=== PATIENT | male | born 1935 | race Caucasian/White ===

== ENCOUNTER 2016-09-29 09:30 | Emergency (ER) | payer MEDICARE, BC | END 2016-09-29 09:37 | disposition home or self-care (01) | LOC: ER 09:30 | DX: Z48.02 Encounter for removal of sutures (principal) ==

== ENCOUNTER 2016-12-27 09:03 | Emergency (ER) | payer MEDICARE, BC ==
--- OUTSIDE RECORDS SUMMARY | 2016-12-27 09:10 | XMS REPORT | Continuity of Care Document ---
:1935 Author Organization [facility] ([facility]) Address [address] [place] [address] Phone [phone] Care Team Providers Name Role Phone Preeti Arzola Primary Care Provider [phone] Source Comments This disclosure is being made pursuant to the Care Everywhere program, applicable federal and state laws, and may not contain all informaitonavailable regarding this patient.[facility] ([facility]) Active Allergies and Adverse Reactions No Known Allergies Current Medications Prescription Sig. Disp. Refills Start Date End Date Status UREA/HYDROPHILIC apply topically as 454 g 11 01/16/2014 Active OINTMENT (UREA 10% IN needed. Indications: HYDROPHILIC) topical HYPERKERATOSIS ointment fluoroURACIL 5 % Apply topically 2 times 40 g 2 05/20/2016 Active topical cream daily. Apply to lesions as directed. loratadine 10 mg Take 10 mg by mouth 5 12/08/2016 Active tablet daily. Active Problems Problem Noted Date Actinic keratoses 07/25/2013 History of nonmelanoma skin cancer 02/08/2012 Spinal stenosis, other than cervical 1999 Most Recent Encounters Date Type Specialty Providers Description 12/21/2016 Telephone Dermatology Keaton Lazo, Chief Comp: Post-op Salma Perez MD Follow-up Call 12/20/2016 Office Visit Dermatology Keaton Lazo, Dx: Squamous cell aSlma Perez MD carcinoma of cheek (Primary Dx) 12/14/2016 Telephone Dermatology Gage Powers Chief Comp: Preoperative Screening 12/02/2016 Office Visit Dermatology Keaton Lazo Dx: Neoplasm of uncertain Salma Perez MD behavior of skin (Primary Dx) Immunizations Name Dates Previously Given Next Due Pneumococcal, unspecified 04/06/2012 Social History Tobacco Use Types Packs/Day Years Used Date Former Smoker Cigarettes 1 Quit: 03/22/2014 Smokeless Tobacco: Never Used Tobacco Cessation:Counseling Given: Yes Comments: Last Filed Vital Signs Vital Sign Reading Time Taken Blood Pressure 152/71 12/20/2016 9:03 AM CDT Pulse 71 12/20/2016 9:03 AM CDT Temperature 36.7 C (98.1 F) 12/20/2016 9:03 AM CDT Respiratory Rate - - Height 1.829 m (6') 02/15/1999 5:45 PM CDT Weight 66.679 kg (147 lb) 02/15/1999 5:45 PM CDT Body Mass Index 19.93 02/15/1999 5:45 PM CDT Oxygen Saturation 97% 12/20/2016 9:03 AM CDT Plan of Care Date Type Specialty Providers Description 03/10/2017 Appointment Dermatology Keaton Lazo, Chief Comp: Patient Salma Perez MD Reported Reason For Visit [address] [place] [address] [phone] (Fax) Health Maintenance Due Date Last Done Comments Hepatitis B Vaccine (1 of 3 - Primary Series) 1935 Tdap Vaccine 1948 Lipid Disorder Screening 1955 Td Vaccine 1955 Colonoscopy 1987 Zoster Vaccine 1997 Pneumococcal Vaccine (1 of 2 - PCV13) 2002 Influenza Vaccine: Seasonal (Season Ended) 2017 Procedures from Last 3 Months Procedure Name Priority Date/Time Associated Diagnosis Comments MOHS SURGERY Routine 12/20/2016 1:53 PM Squamous cell Results for this CDT carcinoma of cheek procedure are in the results section. MOHS SURGERY Routine 12/20/2016 1:53 PM Squamous cell Results for this CDT carcinoma of cheek procedure are in the results section. BX XTRNL EAR Routine 12/10/2016 3:03 PM Neoplasm of Results for this CDT uncertain behavior procedure are in of skin the results section. DSTRJ ALL PRMLG Routine 12/10/2016 3:03 PM Actinic keratosis Results for this 2-14 EA CDT procedure are in the results section. DSTRJ ALL PRMLG 1ST Routine 12/10/2016 3:03 PM Actinic keratosis Results for this LES CDT procedure are in the results section. Results from Last 3 Months MOHS SURGERY (12/20/2016 1:53 PM) Tasneem Ricks MD 12/20/20161:53 PM Mohs Micrographic Surgery Operation Record Surgery/Procedure Date: 12/20/2016 Surgical Service: Dermatologic Surgery Attending Staff Surgeon: Salma Lazo MD Fellow: Tasneem Hammond MD Mohs micrographic surgery was indicated. The nature and purpose of the procedure, associated risks, possible consequences and complications, and alternative forms of treatment were explained to the patient.Written informed consent and a photo permit were obtained.The patient was positioned and the area was infiltrated with local anesthetic, prepped, and draped in the usual manner. Anesthesia: 1% lidocaine with 1:100,000 epinephrine 0.25% bupivicaine with 1:200,000 epinephrine Preparation: Chlorhexidine Lesion I Pre-operative Diagnosis: squamous cell carcinoma Location: Left preauricular cheek Pre-operative Size: 0.9 x 0.8 cm Post-operative Diagnosis: Same Indications: ill - defined clinical margins, location where tissue conservation is critical Operation/Procedure: Mohs micrographically controlled excision with with a complex linear closure The clinically apparent tumor was debulked with a curette, scalpel and scissors. Stage I: A 2 mm rim of normal appearing skin was marked circumferentially around the defect.The area thus outlined was excised deep to sucbutis.Hemostasis was achieved with bipolar electrocoagulation.The specimen was oriented, subdivided into 2 sections, chromacoded, and submitted for horizontal frozen sections.The patient tolerated the procedure well and no complications were noted.Upon review of the horizontal frozen sections of Stage I, residual tumor was identified along the periphery of the superior pole of the specimen. Stage II: The residual tumor was debulked with a scalpel.A 2 mm rim of normal appearing skin was marked circumferentially around the periphery of the defect.The area thus outlined was excised deep to subcutis.Hemostasis was achieved with bipolar electrocoagulation.The specimen was oriented, subdivided into 1 sections, chromacoded, and submitted for horizontal frozen sections.The patient tolerated the procedure well and no complications were noted.Upon review of the horizontal frozen sections of stage II, residual tumor was not identified. The final defect size was 1.7 x 1.8 cm and the total number of microscopic sections was 3.The surgical defect was repaired with a complex linear closure A fusiform shape was drawn around the defect with a surgical marker and the area was infiltrated with 1% lidocaine with 1:100,000 epinephrine.The patient was prepped and draped in the usual manner. The margins were incised as drawn to the level of the subcutis with a surgical blade.The tissue was removed with sharp scissor dissection.The lateral margins of the resulting defect were undermined at the level of the subcutis with blunt and sharp scissor dissection so the wound edges could be apposed without significant tension. Hemostasis was maintained using spot electrocoagulation. The wound was closed with deep buried sutures of 4-0 Polysorb. The wound edges were approximated with superficial running and/or interrupted sutures of 6-0 Surgipro. Redundant tissue repair was performed and subsequently the wounds closed in similar fashion. The resulting closed linear wound measured 6 cm and ran in tori breana configuration . The wound was cleansed with sterile saline and dressed with a non-adherent pressure bandage. Wound care instructions were given verbally and in writing. Lesion II Pre-operative Diagnosis: squamous cell carcinoma, well differentiated Location: right jawline Pre-operative Size: 0.8 x 0.6 cm Post-operative Diagnosis: Same Indications: ill - defined clinical margins, location where tissue conservation is critical Operation/Procedure: Mohs micrographically controlled excision with with a complex linear closure The clinically apparent tumor was debulked with a curette, scalpel and scissors. Stage I: A 2 mm rim of normal appearing skin was marked circumferentially around the defect.The area thus outlined was excised deep to subcutis.Hemostasis was achieved with bipolar electrocoagulation.The specimen was oriented, subdivided into 2 sections, chromacoded, and submitted for horizontal frozen sections.The patient tolerated the procedure well and no complications were noted.Upon review of the horizontal frozen sections of Stage I, residual tumor was not identified. The final defect size was 1.2 x 1 cm and the total number of microscopic sections was 2.The surgical defect was repaired with a complex linear closure A fusiform shape was drawn around the defect with a surgical marker and the area was infiltrated with 1% lidocaine with 1:100,000 epinephrine.The patient was prepped and draped in the usual manner. The margins were incised as drawn to the level of the subcutis with a surgical blade.The tissue was removed with sharp scissor dissection.The lateral margins of the resulting defect were undermined at the level of the subcutis with blunt and sharp scissor dissection so the wound edges could be apposed without significant tension. Hemostasis was maintained using spot electrocoagulation. The wound was closed with deep buried sutures of 4-0 Polysorb. The wound edges were approximated with superficial running and/or interrupted sutures of 6-0 Surgipro. Redundant tissue repair was performed and subsequently the wounds closed in similar fashion. The resulting closed linear wound measured 3 cm and ran vertically. The wound was cleansed with sterile saline and dressed with a non-adherent pressure bandage. Wound care instructions were given verbally and in writing. Patient was recommended acetaminophen 650mg po PRN pain.The patient was discharged from the Dermatology Clinic in good condition. Salma Lazo MD was physically present for the entire procedure. Staff Involved: Staff and Resident/Fellow Tasneem Hammond MD Procedure Summary: Mohs micrographically controlled excision Area affected: head/neck Location details: left cheek Number of Stages: 2 Number of Tissue Blocks in Stage 1: 2 Number of Tissue Blocks in Stage 2: 1 Repair(s) performed: linear closure Linear Closure Repair Size: 6 cm Linear Closure Repair Complexity: complex Mohs micrographically controlled excision Area affected: head/neck Location details: right cheek Number of Stages: 1 Number of Tissue Blocks in Stage 1: 2 Repair(s) performed: linear closure Linear Closure Repair Size: 3.5 cm Linear Closure Repair Complexity: complex MOHS SURGERY (12/20/2016 1:53 PM) Tasneem Ricks MD 12/20/20161:53 PM Mohs Micrographic Surgery Operation Record Surgery/Procedure Date: 12/20/2016 Surgical Service: Dermatologic Surgery Attending Staff Surgeon: Salma Lazo MD Fellow: Tasneem Hammond MD Mohs micrographic surgery was indicated. The nature and purpose of the procedure, associated risks, possible consequences and complications, and alternative forms of treatment were explained to the patient.Written informed consent and a photo permit were obtained.The patient was positioned and the area was infiltrated with local anesthetic, prepped, and draped in the usual manner. Anesthesia: 1% lidocaine with 1:100,000 epinephrine 0.25% bupivicaine with 1:200,000 epinephrine Preparation: Chlorhexidine Lesion I Pre-operative Diagnosis: squamous cell carcinoma Location: Left preauricular cheek Pre-operative Size: 0.9 x 0.8 cm Post-operative Diagnosis: Same Indications: ill - defined clinical margins, location where tissue conservation is critical Operation/Procedure: Mohs micrographically controlled excision with with a complex linear closure The clinically apparent tumor was debulked with a curette, scalpel and scissors. Stage I: A 2 mm rim of normal appearing skin was marked circumferentially around the defect.The area thus outlined was excised deep to sucbutis.Hemostasis was achieved with bipolar electrocoagulation.The specimen was oriented, subdivided into 2 sections, chromacoded, and submitted for horizontal frozen sections.The patient tolerated the procedure well and no complications were noted.Upon review of the horizontal frozen sections of Stage I, residual tumor was identified along the periphery of the superior pole of the specimen. Stage II: The residual tumor was debulked with a scalpel.A 2 mm rim of normal appearing skin was marked circumferentially around the periphery of the defect.The area thus outlined was excised deep to subcutis.Hemostasis was achieved with bipolar electrocoagulation.The specimen was oriented, subdivided into 1 sections, chromacoded, and submitted for horizontal frozen sections.The patient tolerated the procedure well and no complications were noted.Upon review of the horizontal frozen sections of stage II, residual tumor was not identified. The final defect size was 1.7 x 1.8 cm and the total number of microscopic sections was 3.The surgical defect was repaired with a complex linear closure A fusiform shape was drawn around the defect with a surgical marker and the area was infiltrated with 1% lidocaine with 1:100,000 epinephrine.The patient was prepped and draped in the usual manner. The margins were incised as drawn to the level of the subcutis with a surgical blade.The tissue was removed with sharp scissor dissection.The lateral margins of the resulting defect were undermined at the level of the subcutis with blunt and sharp scissor dissection so the wound edges could be apposed without significant tension. Hemostasis was maintained using spot electrocoagulation. The wound was closed with deep buried sutures of 4-0 Polysorb. The wound edges were approximated with superficial running and/or interrupted sutures of 6-0 Surgipro. Redundant tissue repair was performed and subsequently the wounds closed in similar fashion. The resulting closed linear wound measured 6 cm and ran in tori breana configuration . The wound was cleansed with sterile saline and dressed with a non-adherent pressure bandage. Wound care instructions were given verbally and in writing. Lesion II Pre-operative Diagnosis: squamous cell carcinoma, well differentiated Location: right jawline Pre-operative Size: 0.8 x 0.6 cm Post-operative Diagnosis: Same Indications: ill - defined clinical margins, location where tissue conservation is critical Operation/Procedure: Mohs micrographically controlled excision with with a complex linear closure The clinically apparent tumor was debulked with a curette, scalpel and scissors. Stage I: A 2 mm rim of normal appearing skin was marked circumferentially around the defect.The area thus outlined was excised deep to subcutis.Hemostasis was achieved with bipolar electrocoagulation.The specimen was oriented, subdivided into 2 sections, chromacoded, and submitted for horizontal frozen sections.The patient tolerated the procedure well and no complications were noted.Upon review of the horizontal frozen sections of Stage I, residual tumor was not identified. The final defect size was 1.2 x 1 cm and the total number of microscopic sections was 2.The surgical defect was repaired with a complex linear closure A fusiform shape was drawn around the defect with a surgical marker and the area was infiltrated with 1% lidocaine with 1:100,000 epinephrine.The patient was prepped and draped in the usual manner. The margins were incised as drawn to the level of the subcutis with a surgical blade.The tissue was removed with sharp scissor dissection.The lateral margins of the resulting defect were undermined at the level of the subcutis with blunt and sharp scissor dissection so the wound edges could be apposed without significant tension. Hemostasis was maintained using spot electrocoagulation. The wound was closed with deep buried sutures of 4-0 Polysorb. The wound edges were approximated with superficial running and/or interrupted sutures of 6-0 Surgipro. Redundant tissue repair was performed and subsequently the wounds closed in similar fashion. The resulting closed linear wound measured 3 cm and ran vertically. The wound was cleansed with sterile saline and dressed with a non-adherent pressure bandage. Wound care instructions were given verbally and in writing. Patient was recommended acetaminophen 650mg po PRN pain.The patient was discharged from the Dermatology Clinic in good condition. Salma Lazo MD was physically present for the entire procedure. Staff Involved: Staff and Resident/Fellow Tasneem Hammond MD Procedure Summary: Mohs micrographically controlled excision Area affected: head/neck Location details: left cheek Number of Stages: 2 Number of Tissue Blocks in Stage 1: 2 Number of Tissue Blocks in Stage 2: 1 Repair(s) performed: linear closure Linear Closure Repair Size: 6 cm Linear Closure Repair Complexity: complex Mohs micrographically controlled excision Area affected: head/neck Location details: right cheek Number of Stages: 1 Number of Tissue Blocks in Stage 1: 2 Repair(s) performed: linear closure Linear Closure Repair Size: 3.5 cm Linear Closure Repair Complexity: complex BIOPSY OF SKIN (12/10/2016 3:03 PM) Salma Chairez MD 12/10/20163:03 PM Dermatology Clinic Note Encounter Date: 12/02/2016 Subjective: History of Present Illness: This 81 y.o. male follows up for history of squamous cell carcinoma and actinic keratoses. Today, the patient notes new, painful lesions on the bilateral ears that have been present for months. He has not treated them. He is currently using Efudex on the forehead and forearms. No other skin rashes or lesions that are bleeding, pruritic, or changing in size/color are reported. The patient has no other skin concerns today. Past Medical History: 1. 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 -Squamous cell carcinoma, right superior neck and left neck, status post shave biopsy with clear margins. -Squamous cell carcinoma, left frontal scalp, status post Mohs excision 11/2005. -Squamous cell carcinoma, left jaw, status post Mohs excision 01/2005. -Squamous cell carcinoma, keratoacanthoma type, mid back, status post C&F 10/2006. -Squamous cell carcinoma in situ, right zygoma, status post C&F 10/2006. -Squamous cell carcinoma, left denominational, status post Mohs 03/05/2007. -Squamous cell carcinoma at least in situ, left preauricular cheek, status post C&F 03/05/2007. -Squamous cell carcinoma, right lateral hand, status post C&F 06/13/2007. -Squamous cell carcinoma, right forearm, status post excision 07/16/2007. -Squamous cell carcinoma, left forearm, status post excision 07/16/2007. -Squamous cell carcinoma, right lateral neck, status post C&F 07/16/2007. -Squamous cell carcinoma in situ, at least, right forehead, status post C&F 08/20/2008. -Squamous cell carcinoma, forehead, status post C&F 08/20/2008. -Squamous cell carcinoma, right denominational, status post C&F 12/03/2008, status post Mohs 12/30/2008. -Squamous cell carcinoma, left forearm, status post C&F 12/30/2008. -Squamous cell carcinoma, left dorsal hand, status post C&F 04/08/2009. -Squamous cell carcinoma, right dorsal forearm, status post C&F 04/08/2009. -Squamous cell carcinoma, left upper arm and right dorsal wrist, status post C&F 05/06/2009. -Squamous cell carcinoma, right dorsal forearm, status post excision 06/08/2009. -Squamous cell carcinoma, left forearm, left wrist, and right wrist, status post C&F 04/19/2010. -Squamous cell carcinoma in situ and squamous cell carcinoma, left forearm, status-post C&F 07/22/2010. -Squamous cell carcinoma (x2), right dorsal hand, status post C&F 11/04/2010. -Squamous cell carcinoma (x2), right neck, status post excision 12/06/2010. -Squamous cell carcinoma, left postauricular neck, status post C&F 06/02/2011. 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 -SCC left upper back, s/p shave with uninvolved margins 06/07/2012 -SCCIS, left lower back, s/p C and F 06/07/2012 -SCC, mod-diff, right postauricular, s/p excision 10/15/13 -SCC, well-diff, right preauricular, s/p C&F, 10/15/13 - SCCIS, right lateral neck, s/p shave removal (uninvolved margins (01/16/2014) - SCC, left forehead, s/p Mohs 06/2014 - SCC, left scaphoid fossa, s/p Mohs 11/10/14 - SCC, right cheek, status post Mohs 11/10/14 -Squamous cell carcinoma, invasive, well-differentiated, arising in background actinic keratosis. left jaw line, 08/2015 - SCC, left lateral neck, s/p excision on 09/19/16: -Squamous cell carcinoma, distal right lower arm, s/p curettage and electrofulguration on 09/19/16 - Squamous cell carcinoma, dorsal left lower arm, s/p curettage and electrofulguration on 09/19/16 2. Actinic keratoses. -HAK, biopsied 06/07/2012 -Efudex X 12 days to forehead 09/2012 - Efudex x2 weeks to left upper back x2 weeks (6 weeks recommended), 10/04/12 - Efudex to arms, 2 weeks QD, completed 12/24/12 - Efudex to forehead and arms x 10 days, 06/2013 - Efudex to forearms and dorsal hands x 2 weeks, 04/2014 - Efudex to dorsal forearms, hands, forehead x 4 weeks 09/2014 - Efudex to lower lip 12/24 - Efudex to forehead November 2015 - Efudex to forehead, scalp, right ear, arms 08/2016 Social History: Mr. Stack patient is . 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 Lives in [place]. They have [address]. Reports appropriate sun protective practices. Family History: Denies family history of melanoma. Nonmelanoma skin cancers in brother & sister. Medications: Outpatient Medication Currently Taking Medication Sig Refill fluoroURACIL 5 % topical cream Apply topically 2 times daily. Apply to lesions as directed. 2 UREA/HYDROPHILIC OINTMENT (UREA 10% IN HYDROPHILIC) topical ointment applytopically as needed. Indications: HYPERKERATOSIS 11 Allergies: No Known Allergies Review of Systems: Skin Establ Pt: The patient denies any new rash, pruritus, or lesions that are symptomatic, changing or bleeding, except as per HPI. Objective: Physical exam: This is a well developed, well-nourished male in no acute distress, with a pleasant affect.Waist-up skin, which includes the head/face, neck, both arms, chest, back, abdomen, digits and/or nails, was examined. -There are multiple scattered erythematous macules with overlying adherent scale on forehead, temples, forearms, dorsal hands, left retroauricular area (x1), cheeks (x3), right superior helix (x1) - 4 mm crusted papule on the left lateral helix (A) - 3 mm crusted papule on the right antihelix (B) - 9 mm eroded plaque on the left preauricular cheek (C) - 4 mm erythematous papule on the right jaw line (D) - >5 cm erythematous patch on the left shoulder -There are no other skin lesions of concern in the areas examined. Impression: 1. Neoplasms of uncertain behavior x 4 A. Left lateral helix - squamous cell carcinoma vs CNH B. Right antihelix - squamous cell carcinoma vs CNH C. Left preauricular cheek - rule out squamous cell carcinoma D. Right jaw line - rule out squamous cell carcinoma 2. Erythematous patch on left shoulder at site of previous squamous cell carcinoma in situ (04/2008) - lesion likely recurrent squamous cell carcinoma in situ 3. History of multiple squamous cell carcinomas with no clinical evidence of recurrence today except as noted above 4. Multiple actinic keratoses in sun-exposed areas Plan: 1. Clinical findings were discussed with the patient. 2. Shave biopsies x 4 performed as documented below 3. Cryotherapy to more hyperkeratotic lesions on left retroauricular area (x1), cheeks (x3), right superior helix (x1) 4. Continue Efudex twice daily x 3 weeks, then take 2 week break, then repeat to forehead, temples, forearms, dorsal hands. Treat left shoulder lesion as well. 5. Recommend periodic self skin exams and report of any new or changing lesions. 6. Recommend broad spectrum sunscreens SPF #30 or greater, protective clothing, and avoidance of tanning beds. Follow up 3 months Procedure Performed: AK destruction Number of lesions: 5 Additional Procedure Detail: The above described lesions were treated with liquid nitrogen cryotherapy to achieve a freeze border of 1-2 mm. Post-cryotherapy wound care instructions were provided. Biopsy Area affected: head/neck Location details: right ear, left ear, right cheek and left cheek Number of lesions: 4 Additional Procedure Detail: After the risks and benefits were discussed with the patient, all questions were addressed and informed consent was signed.1% lidocaine with 1:100,000 epinephrine was injected to obtain adequate anesthesia of the lesion(s) as described above.Shave biopsies were performed.Hemostasis was achieved with aluminum chloride. White petroleum jelly/Vaseline and a bandage were applied to the wounds. Soheila Jimeneztaffed the patient and was physically present for the kevin portions of the above major procedure(s). Teaching Statement I have interviewed and examined the patient and confirm the pertinent findings.I have discussed the case with the resident/fellow and agree with the findings and plan as documented. Procedure Attestation I was physically present for the kevin portion(s) of the procedure and was immediately available for the non-kevin portions.Kevin portions defined as the site selection and performance of shave/punch and destruction of an initial lesion. 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 Discussed that repair options that are often uncertain until the lesion has been excised, discussed that the surgical defect may be larger than the clinically evident lesion.Reviewed the Mohs surgery process and advised to reserve the entire day for the procedure.Advised to continue all medications. Preoperative antibiotics are not indicated.Electronic Mohs completed and submitted for scheduling. For the hypertrophic actinic keratosis on the right antihelix (lesion B below), start Efudex twice daily x 3 weeks. Pathology: A. Skin, left lateral helix, shave biopsy: Chondrodermatitis nodularis helicis. B. Skin, right antihelix, shave biopsy: Hypertrophic actinic keratosis. C. Skin, left preauricular cheek, shave biopsy: At least squamous cell carcinoma in situ. D. Skin, right jawline, shave biopsy: Squamous cell carcinoma, well differentiated. Javon Lopez MD DESTRUCTION PREMALIGNANT LESIONS (12/10/2016 3:03 PM) Narrative Salma Heaton MD 12/10/20163:03 PM Dermatology Clinic Note Encounter Date: 12/02/2016 Subjective: History of Present Illness: This 81 y.o. male follows up for history of squamous cell carcinoma and actinic keratoses. Today, the patient notes new, painful lesions on the bilateral ears that have been present for months. He has not treated them. He is currently using Efudex on the forehead and forearms. No other skin rashes or lesions that are bleeding, pruritic, or changing in size/color are reported. The patient has no other skin concerns today. Past Medical History: 1. 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 -Squamous cell carcinoma, right superior neck and left neck, status post shave biopsy with clear margins. -Squamous cell carcinoma, left frontal scalp, status post Mohs excision 11/2005. -Squamous cell carcinoma, left jaw, status post Mohs excision 01/2005. -Squamous cell carcinoma, keratoacanthoma type, mid back, status post C&F 10/2006. -Squamous cell carcinoma in situ, right zygoma, status post C&F 10/2006. -Squamous cell carcinoma, left denominational, status post Mohs 03/05/2007. -Squamous cell carcinoma at least in situ, left preauricular cheek, status post C&F 03/05/2007. -Squamous cell carcinoma, right lateral hand, status post C&F 06/13/2007. -Squamous cell carcinoma, right forearm, status post excision 07/16/2007. -Squamous cell carcinoma, left forearm, status post excision 07/16/2007. -Squamous cell carcinoma, right lateral neck, status post C&F 07/16/2007. -Squamous cell carcinoma in situ, at least, right forehead, status post C&F 08/20/2008. -Squamous cell carcinoma, forehead, status post C&F 08/20/2008. -Squamous cell carcinoma, right denominational, status post C&F 12/03/2008, status post Mohs 12/30/2008. -Squamous cell carcinoma, left forearm, status post C&F 12/30/2008. -Squamous cell carcinoma, left dorsal hand, status post C&F 04/08/2009. -Squamous cell carcinoma, right dorsal forearm, status post C&F 04/08/2009. -Squamous cell carcinoma, left upper arm and right dorsal wrist, status post C&F 05/06/2009. -Squamous cell carcinoma, right dorsal forearm, status post excision 06/08/2009. -Squamous cell carcinoma, left forearm, left wrist, and right wrist, status post C&F 04/19/2010. -Squamous cell carcinoma in situ and squamous cell carcinoma, left forearm, status-post C&F 07/22/2010. -Squamous cell carcinoma (x2), right dorsal hand, status post C&F 11/04/2010. -Squamous cell carcinoma (x2), right neck, status post excision 12/06/2010. -Squamous cell carcinoma, left postauricular neck, status post C&F 06/02/2011. 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 -SCC left upper back, s/p shave with uninvolved margins 06/07/2012 -SCCIS, left lower back, s/p C and F 06/07/2012 -SCC, mod-diff, right postauricular, s/p excision 10/15/13 -SCC, well-diff, right preauricular, s/p C&F, 10/15/13 - SCCIS, right lateral neck, s/p shave removal (uninvolved margins (01/16/2014) - SCC, left forehead, s/p Mohs 06/2014 - SCC, left scaphoid fossa, s/p Mohs 11/10/14 - SCC, right cheek, status post Mohs 11/10/14 -Squamous cell carcinoma, invasive, well-differentiated, arising in background actinic keratosis. left jaw line, 08/2015 - SCC, left lateral neck, s/p excision on 09/19/16: -Squamous cell carcinoma, distal right lower arm, s/p curettage and electrofulguration on 09/19/16 - Squamous cell carcinoma, dorsal left lower arm, s/p curettage and electrofulguration on 09/19/16 2. Actinic keratoses. -HAK, biopsied 06/07/2012 -Efudex X 12 days to forehead 09/2012 - Efudex x2 weeks to left upper back x2 weeks (6 weeks recommended), 10/04/12 - Efudex to arms, 2 weeks QD, completed 12/24/12 - Efudex to forehead and arms x 10 days, 06/2013 - Efudex to forearms and dorsal hands x 2 weeks, 04/2014 - Efudex to dorsal forearms, hands, forehead x 4 weeks 09/2014 - Efudex to lower lip 12/24 - Efudex to forehead November 2015 - Efudex to forehead, scalp, right ear, arms 08/2016 Social History: Mr. Stack patient is . 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 Lives in [place]. They have [address]. Reports appropriate sun protective practices. Family History: Denies family history of melanoma. Nonmelanoma skin cancers in brother & sister. Medications: Outpatient Medication Currently Taking Medication Sig Refill fluoroURACIL 5 % topical cream Apply topically 2 times daily. Apply to lesions as directed. 2 UREA/HYDROPHILIC OINTMENT (UREA 10% IN HYDROPHILIC) topical ointment applytopically as needed. Indications: HYPERKERATOSIS 11 Allergies: No Known Allergies Review of Systems: Skin Establ Pt: The patient denies any new rash, pruritus, or lesions that are symptomatic, changing or bleeding, except as per HPI. Objective: Physical exam: This is a well developed, well-nourished male in no acute distress, with a pleasant affect.Waist-up skin, which includes the head/face, neck, both arms, chest, back, abdomen, digits and/or nails, was examined. -There are multiple scattered erythematous macules with overlying adherent scale on forehead, temples, forearms, dorsal hands, left retroauricular area (x1), cheeks (x3), right superior helix (x1) - 4 mm crusted papule on the left lateral helix (A) - 3 mm crusted papule on the right antihelix (B) - 9 mm eroded plaque on the left preauricular cheek (C) - 4 mm erythematous papule on the right jaw line (D) - >5 cm erythematous patch on the left shoulder -There are no other skin lesions of concern in the areas examined. Impression: 1. Neoplasms of uncertain behavior x 4 A. Left lateral helix - squamous cell carcinoma vs CNH B. Right antihelix - squamous cell carcinoma vs CNH C. Left preauricular cheek - rule out squamous cell carcinoma D. Right jaw line - rule out squamous cell carcinoma 2. Erythematous patch on left shoulder at site of previous squamous cell carcinoma in situ (04/2008) - lesion likely recurrent squamous cell carcinoma in situ 3. History of multiple squamous cell carcinomas with no clinical evidence of recurrence today except as noted above 4. Multiple actinic keratoses in sun-exposed areas Plan: 1. Clinical findings were discussed with the patient. 2. Shave biopsies x 4 performed as documented below 3. Cryotherapy to more hyperkeratotic lesions on left retroauricular area (x1), cheeks (x3), right superior helix (x1) 4. Continue Efudex twice daily x 3 weeks, then take 2 week break, then repeat to forehead, temples, forearms, dorsal hands. Treat left shoulder lesion as well. 5. Recommend periodic self skin exams and report of any new or changing lesions. 6. Recommend broad spectrum sunscreens SPF #30 or greater, protective clothing, and avoidance of tanning beds. Follow up 3 months Procedure Performed: AK destruction Number of lesions: 5 Additional Procedure Detail: The above described lesions were treated with liquid nitrogen cryotherapy to achieve a freeze border of 1-2 mm. Post-cryotherapy wound care instructions were provided. Biopsy Area affected: head/neck Location details: right ear, left ear, right cheek and left cheek Number of lesions: 4 Additional Procedure Detail: After the risks and benefits were discussed with the patient, all questions were addressed and informed consent was signed.1% lidocaine with 1:100,000 epinephrine was injected to obtain adequate anesthesia of the lesion(s) as described above.Shave biopsies were performed.Hemostasis was achieved with aluminum chloride. White petroleum jelly/Vaseline and a bandage were applied to the wounds. Soheila Jimeneztaffed the patient and was physically present for the kevin portions of the above major procedure(s). Teaching Statement I have interviewed and examined the patient and confirm the pertinent findings.I have discussed the case with the resident/fellow and agree with the findings and plan as documented. Procedure Attestation I was physically present for the kevin portion(s) of the procedure and was immediately available for the non-kevin portions.Kevin portions defined as the site selection and performance of shave/punch and destruction of an initial lesion. 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 Discussed that repair options that are often uncertain until the lesion has been excised, discussed that the surgical defect may be larger than the clinically evident lesion.Reviewed the Mohs surgery process and advised to reserve the entire day for the procedure.Advised to continue all medications. Preoperative antibiotics are not indicated.Electronic Mohs completed and submitted for scheduling. For the hypertrophic actinic keratosis on the right antihelix (lesion B below), start Efudex twice daily x 3 weeks. Pathology: A. Skin, left lateral helix, shave biopsy: Chondrodermatitis nodularis helicis. B. Skin, right antihelix, shave biopsy: Hypertrophic actinic keratosis. C. Skin, left preauricular cheek, shave biopsy: At least squamous cell carcinoma in situ. D. Skin, right jawline, shave biopsy: Squamous cell carcinoma, well differentiated. Javon Lopez MD DERMATOPATHOLOGY EXAM (12/02/2016 11:03 AM) Component Value Range Case Report Surgical Pathology Case: [id number] Authorizing Provider:John Javon M, [facility]Aollected: 12/02/2016 11:03 AM Ordering Location: Dermatology Clinic Received: 12/02/2016 11:40 AM Pathologist: Meño Simon MD Specimens: A) - Skin, other, specify, lt lateral helix B) - Skin, other, specify, rt antihelix C) - Skin, other, specify, lt preauricular cheek D) - Skin, other, specify, rt jawline Diagnosis A.Skin, left lateral helix, shave biopsy: Chondrodermatitis nodularis helicis. B.Skin, right antihelix, shave biopsy: Hypertrophic actinic keratosis. C.Skin, left preauricular cheek, shave biopsy: At least squamous cell carcinoma in situ. D.Skin, right jawline, shave biopsy: Squamous cell carcinoma, well differentiated. I have personally reviewed this case and edited the report as necessary. Clinical Information Rule out squamous cell carcinomas Gross Description A.Received in formalin, in a container labeled [facility], [facility] [place] number, and "lt lateral helix", is a 0.6 x 0.4 x 0.1 cm trejo shave biopsy.The specimen is inked, bisectedand submittedentirely in A1. LRL/cja B.Received in formalin, in a container labeled [facility], [facility] number, and "rt antihelix", is a 0.5 x 0.4 x 0.1 cm trejo shave biopsy.The specimen is inked, bisectedand submitted entirely in B1. LRL/cja C.Received in formalin, in a container labeled [facility], [facility] [place] number, and "lt preauricular cheek", is a 0.7 x 0.5 x 0.1 cm trejo shave biopsy. The specimen is inked, bisectedand submitted entirely in C1. LRL/cja D.Received in formalin, in a container labeled [facility], [facility] [place] number, and "rt jawline", is a 0.5 x 0.5 x 0.1 cm trejo shave biopsy.The specimen is inked, bisectedand submitted entirely in D1. LRL/cja Microscopic Description A.Sections show focal fibrinoid alternation of the dermis with overlying epidermal ulceration, flanking areas of reactive appearing epidermal acanthosis, and associated solar elastosis with garrett us dilated blood vessels.There is no evidence of an atypical epithelial proliferation. B.Sections show marked hyperkeratosis and parakeratosis associated with acanthotic epidermis that demonstrates a proliferation of atypical keratinocytes that affects most but not all of the epidermis. Margins are involved. C.Sections show a full thickness proliferation of atypical keratinocytes associated with overlying compact hyperkeratosis and parakeratosis.The lesion is transected at the base. D.Sections of skin show a hyperparakeratotic atypical squamous proliferation arising from the epidermis with extension into the dermis as discontiguous atypical squamous islands.The lesion istransected at the base. Performed by:Javon Quiñones MD, R4/rls Specimen Skin - Skin, other, specify
== END 2016-12-27 09:32 | disposition home or self-care (01) ==
LOC: ER 09:03
DX: Z48.02 Encounter for removal of sutures (principal)

== ENCOUNTER 2017-04-01 18:15 | Emergency (ER) | payer MEDICARE, BC ==
--- NOTE | 2017-04-01 18:39 | ERNOTE ---
Head Injury HPI - Narrative Date of Service: 04/01/17 - General Time Seen by Provider: 04/01/17 18:39 Source: patient, family - Immun/Allergies/Home Medications Immunization: IMMUNIZATION HX Immunizations Up to Date Yes History of Influenza Vaccine Yes Hx Pneumococcal Vaccination No Allergies/Adverse Reactions: Allergies Allergy/AdvReac Type Severity Reaction Status Date / Time No Known Allergies Allergy Unverified 04/01/17 18:23 Home Medications: HOME MEDICATIONS Finasteride [Proscar] 5 mg PO DAILY 04/01/17 [Last Taken Unknown] Loratadine [Allergy Relief] 10 mg PO DAILY 04/01/17 [Last Taken Unknown] - History of Present Illness Narrative: 81-year-old white male has had right-sided neck pain for approximately 10 days. The pain is constant. There is some tenderness with pain with movement of the right side of his neck. Even has pain in the right side of his neck was swelling. He does not have systemic signs of illness. No trouble swallowing. No sore throat. However he did see his primary care physician last week and was placed on Augmentin. He will continue to have some pain with swallowing and additional prescription for a supple floor and was called in. Again he has not had sore throat. No fever or chills. He has a history of multiple skin cancers to his scalp and face. No weight loss. No history of neck cancers Review of Systems - Review of Systems Constitutional: Present: no symptoms reported. Absent: recent illness, fever, chills, weakness, fatigue, malaise, weight loss EYE: Present: no symptoms reported ENT: Present: See HPI. Absent: nose congestion, nasal drainage, sore throat, throat swelling Respiratory: Present: no symptoms reported Cardiology: Present: no symptoms reported Gastrointestinal/Abdominal: Present: no symptoms reported Genitourinary: Present: no symptoms reported Musculoskeletal: Present: See HPI, neck pain Neurological: Present: no symptoms reported Hematologic/Lymphatic: Present: no symptoms reported All Other Systems: All systems neg except as marked - Patient's Past Medical History Patient History - Medical: No pertinent hx, Other Patient History - Cardiac/Respiratory: No pertinent hx Patient History - Cancer: Skin, Other Patient History - Surgical Procedures: Other Patient History - Other: None - Social History Living Situations: home Abuse History: No History of abuse Psych History: No pertinent hx Smoking Status: Current some day smoker Alcohol Use: none Drug Use: none - Immunizations Immunizations Up to Date: Yes Hx Pneumococcal Vaccination: No History of Influenza Vaccine: Yes Physical Exam - Physical Exam General Appearance: Present: wd/wn, alert, no apparent distress Head Exam: Present: normal inspection, other - multiple areas of scalp years facial scarring from treatment of skin cancers Ears, Nose, Throat: Present: other - there is some tenderness of the sternocleidomastoid muscle on the right. No discrete lesion. No erythema. No palpable adenopathy. Neck: Present: other - as above discussed in ENT exam. The tenderness on the right side of the neck primarily along the sternocleidomastoid is reproducible with movement of the neck in any direction. The tenderness and reproducibility of the pain is not isolated to the sternocleidomastoid muscle. Respiratory: Present: no respiratory distress, normal breath sounds, no accessory muscle use, chest nontender, lungs clear Cardiovascular/Chest: Present: regular rate, rhythm, no murmur, normal peripheral pulses Neurological Exam: Present: alert, oriented, no motor/sensory deficits Skin Exam: Present: normal color, warm/dry ED Progress - Vital Signs Patient's Vital Signs:: I have reviewed the patient's vital signs. Vital Signs: Vital Signs 04/01/17 18:24 Temperature 37.2 C Pulse Rate 86 Respiratory 17 Rate Blood Pressure 164/89 O2 Sat by Pulse 96 Oximetry - Progress/Reassessment Chief Complaint: Neck Pain/Injury Plan - Plan Plan: I advised patient to finish his course of antibiotic therapy due to the positive strep test. The etiology of this pain is uncertain. Certainly it could be musculoskeletal. Could also be underlying adenopathy from his strep infection causing this. Patient was concerned about possible cancer. He has a history of multiple cutaneous cancers on his scalp ears and face. I advised him this was a possibility but was less likely. He is only has the pain for approximately 10 days. It is reasonable in my opinion to finish course of antibiotics. Add Advil gelcaps 2 caps 3 times a day. If the symptoms continue or worsen over the next few days I think patient needs to have a CT scan of his neck with IV contrast. I did advise him of this. If he continues to get better I think it's reasonable for him to follow up with his primary care physician in about one week. If they're still was concerned about ominous etiology radiologic imaging CT scan or MRI could be done. I do not see an emergent need to do it today. I did offer it to the patient. Patient and his state they are very comfortable waiting to follow up with her doctor and continue the above course of action. Departure Clinical Impression: Neck pain - Departure Disposition: Home self-care Condition: Stable Instructions: Muscle Pain, Adult Additional Instructions: see primary care physician within one week. If symptoms worsen see primary care physician or ED sooner. Referrals: Preeti Arzola MD [Primary Care Provider] -
--- OUTSIDE RECORDS SUMMARY | 2017-04-01 18:45 | XMS REPORT | Summary of Care ---
:1935 Author Organization [facility] Address [address] [place] [address] Care Team Providers Name Role Phone Physician, Primary Care Primary Care Physician Unavailable Encounter Date(s): 02/20/17 - 02/20/17 [facility] [address] [place], [place] [address] Discharge Diagnosis: Nephrolithiasis Discharge Diagnosis: Calculus in bladder Discharge Diagnosis: Enlarged prostate without lower urinary tract symptoms ( luts) Discharge Diagnosis: Bladder cancer Discharge Disposition: 01 Discharged to Home or Self Care Attending Physician: Kyle Castro MD Referring Physician: Kyle Castro MD Vital Signs Most recent to oldest [Reference Range]: 1 Peripheral Pulse Rate [60-100 bpm] 71 bpm (02/20/17 9:13 AM) Blood Pressure [90-130/60-90 mmHg] 139/65mmHg *HI* (02/20/17 9:13 AM) Mean Arterial Pressure, Cuff 90 mmHg (02/20/17 9:13 AM) Most recent to oldest [Reference Range]: 1 Height/Length Measured 182 cm (02/20/17 9:13 AM) Weight Dosing 55.00 kg1 (02/20/17 9:14 AM) Weight Measured 55 kg (02/20/17 9:13 AM) BSA Measured 1.72 m2 (02/20/17 9:13 AM) Body Mass Index Measured 16.6 kg/m2 (02/20/17 9:13 AM) 1Result Comment: This result was because the dosing weight was either not entered or it is>30 days old. 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 Allergies, Adverse Reactions, Alerts No Known Allergies Medications amoxicillin 500 mg oral tablet 1 tab(s), Oral, TID, # 15 tab(s), 0 Refill(s), Start Date: 01/13/15 15:46:00 CDT , Pharmacy: [place], [place] Start Date: 01/13/15 Stop Date: 02/20/17 Status: Discontinuedfinasteride 5 mg oral tablet tab(s), Oral, Daily, 0 Refill(s) Start Date: 01/04/14 Stop Date: 11/06/14 Status: Discontinuedfinasteride 5 mg oral tablet 1 tab(s), Oral, Daily, # 30 tab(s), 11 Refill(s), Start Date: 11/06/14 15:09:00 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, 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: [place], [place] Start Date: 11/06/14 Status: Orderedloratadine 10 mg oral tablet TAKE ONE TABLET BY MOUTH EVERY DAY Special Instructions: TAKE ONE TABLET BY MOUTH EVERY DAY Start Date: 02/20/17 Status: OrderedTylenol Extra Strength PM 500 mg-25 mg oral tablet tab(s), Oral, HS, 0 Refill(s) Start Date: 01/04/14 Status: Ordered Results No data available for this section Immunizations Vaccine Date Refusal Reason BCG 02/03/15 BCG 01/27/15 BCG 01/20/15 BCG 07/15/14 BCG 07/08/14 BCG 07/01/14 Procedures Procedure Date Related Diagnosis Body Site Bacillus Calmette-Jaclyn vaccine (BCG) for bladder cancer, live, for intravesical use Spine1 TURBT - Transurethral resection of bladder tumor - 2011 & 81103 1spine [id number] been done twice Social History No data available for this section Assessment and Plan No data available for this section
--- OUTSIDE RECORDS SUMMARY | 2017-04-01 18:45 | XMS REPORT | Summary of Care ---
:1935 Author Organization [facility] Care Team Providers Name Role Phone Physician, Primary Care Primary Care Physician Unavailable Encounter Date(s): 02/20/17 - 02/20/17 [facility] [address], [place] [address] Discharge Disposition: Discharged to Home or Self Care Attending Physician: Kyle Castro MD Admitting Physician: Kyle Castro MD Vital Signs No data available for this section Problem List Condition Effective Dates Status Health Status Informant Cancer of stomach(Confirmed) Active Nephrolithiasis(Confirmed) Active Bladder cancer(Confirmed) Active Enlarged prostate without lower Active urinary tract symptoms (luts)(Confirmed) 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 Allergies, Adverse Reactions, Alerts No Known Allergies Medications amoxicillin 500 mg oral tablet 1 tab(s), Oral, TID, # 15 tab(s), 0 Refill(s), Start Date: 01/13/15 15:46:00 CDT , Pharmacy: [place], [place] Start Date: 01/13/15 Stop Date: 02/20/17 Status: Discontinuedfinasteride 5 mg oral tablet tab(s), Oral, Daily, 0 Refill(s) Start Date: 01/04/14 Stop Date: 11/06/14 Status: Discontinuedfinasteride 5 mg oral tablet 1 tab(s), Oral, Daily, # 30 tab(s), 11 Refill(s), Start Date: 11/06/14 15:09:00 [employer], Pharmacy: [place], [place] Start Date: 11/06/14 Status: Orderedloratadine 10 mg oral tablet TAKE ONE TABLET BY MOUTH EVERY DAY Special Instructions: TAKE ONE TABLET BY MOUTH EVERY DAY Start Date: 02/20/17 Status: OrderedTylenol Extra Strength PM 500 mg-25 mg oral tablet tab(s), Oral, HS, 0 Refill(s) Start Date: 01/04/14 Status: Ordered Results Patient Viewable Results Most recent to oldest [Reference Range]: 1 UA Color Straw *NA* (02/20/17 9:54 AM) Urine Clarity Clear *NA* (02/20/17 9:54 AM) Specific [place] [1.000-1.060] 1.010 (02/20/17 9:54 AM) Urine pH [5-8] 5 (02/20/17 9:54 AM) Ketones Negative (02/20/17 9:54 AM) Bilirubin [Negative] Negative (02/20/17 9:54 AM) Urine Protein [Negative] Negative (02/20/17 9:54 AM) Glucose [Negative] Negative (02/20/17 9:54 AM) Urine HGB [Negative] Negative (02/20/17 9:54 AM) Urobilinogen <2.0 (02/20/17 9:54 AM) Nitrite [Negative] Negative (02/20/17 9:54 AM) Leuk Esterase [Negative] Trace *ABN* (02/20/17 9:54 AM) UA Ascorbic Acid [Negative] Negative (02/20/17 9:54 AM) Urine WBC [0-5] 0-5 (02/20/17 9:54 AM) Urine RBC [0-2] 0-2 (02/20/17 9:54 AM) Squamous Epi [0-5] None Seen (02/20/17 9:54 AM) Immunizations Vaccine Date Refusal Reason BCG 02/03/15 BCG 01/27/15 BCG 01/20/15 BCG 07/15/14 BCG 07/08/14 BCG 07/01/14 Procedures Procedure Date Related Diagnosis Body Site Bacillus Calmette-Jaclyn vaccine (BCG) for bladder cancer, live, for intravesical use Spine1 TURBT - Transurethral resection of bladder tumor - 2011 & [id number] 1spine [id number] been done twice Social History No data available for this section Assessment and Plan No data available for this section
[2017-04-01 19:30] VITALS: BP 135/78
== END 2017-04-01 19:20 | disposition home or self-care (01) ==
LOC: ER 18:15
DX: M54.2 Cervicalgia (principal); Z85.828 Personal history of other malignant neoplasm of skin; Z72.0 Tobacco use

== ENCOUNTER 2019-05-09 10:46 | Inpatient (IN) ==
[2019-05-09 11:16] LABS: Urine Bilirubin Negative (NEGATIVE); Urine Blood 25 /ul (NEGATIVE); Urine Ketone Negative (NEGATIVE); Urine Nitrite Negative (NEGATIVE); Urine Protein 100 mg/dL (NEGATIVE); Urine Specific Gravity 1.025 SP.GR. (1.005-1.030); Urine Urobilinogen Normal (NORMAL); Urine pH 5.5 pH (5.0-7.0)
[2019-05-09 11:22] LABS: Urine Appearance Slightly Cloudy (CLEAR); Urine Bacteria 2+; Urine Color Yellow; Urine WBC >50 /hpf (0-5)
[2019-05-09 11:29] LABS: Hemoglobin 12.7 gm/dL (13.5-18.0); Mean Cell Volume 101.8 fl (78-100); Mean Corpuscular Hemoglobin 33.2 pg (27-31); Mean Corpuscular Hgb Conc 32.6 g/dl (32-36); Mean Platelet Volume 9.3 fl (8-11.3); Neutrophil % 76.9 % (42-75.0); Platelet Count 245 K/mm3 (150-450); Red Blood Count 3.83 M/mm3 (4.7-6.0); Red Cell Distribution Width 14.1 % (11.5-14.0); White Blood Count 9.2 K/mm3 (4.0-10.5)
--- NOTE | 2019-05-09 11:39 | ERNOTE ---
ER Male HPI Date of Service: 05/09/19 Stated Complaint: Cancer, dehydrated ER Male: other - urinary frequency Time Seen by Provider: 05/09/19 10:48 Source: patient, family Exam Limitations: no limitations Immunizations: IMMUNIZATION HX Immunizations Up to Date Yes History of Influenza Vaccine Yes Hx Pneumococcal Vaccination No Allergies/Adverse Reactions: Allergies No Known Allergies Allergy (Verified 05/09/19 11:00) Home Medications: HOME MEDICATIONS ipratropium-albuterol 0.5 mg-3 mg(2.5 mg base)/3 mL nebulization soln 3 ml IH QID #180 ml 05/29/18 [Last Taken Unknown] albuterol sulfate HFA 90 mcg/actuation aerosol inhaler 1 - 2 puff IH Q4H PRN #18 g 09/19/18 [Last Taken Unknown] glycopyrrolate 9 mcg-formoterol 4.8 mcg HFA aerosol inhaler 2 puff IH BID 09/27/18 [Last Taken Unknown] acetaminophen 500 mg tablet 500 mg PO Q12H PRN tab 02/25/19 [Last Taken Unknown] fluorouracil 5 % topical cream 1 applic TP BID 02/25/19 [Last Taken Unknown] - History of Present Illness Narrative: The patient is a 83 year old male who presents for urinary frequency which has been present for 2 days. There are associated symptoms of fatigue, dyspnea and productive cough. The patient denies pain. There are no alleviating factors. There are no aggravating factors. Previous treatments have included: none. The past medical history includes: bladder ca, COPD and nephrectomy d/t cancer. The social history is positive for former smoker. The patient has had no known ill contacts. 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 Patient received chemo therapy yesterday with report of abnormal lab results and was sent to ER from his PCP for further evaluation. Patient states he began having urinary frequency on Monday which resolved and then began again last night. Patient reports he received IV hydration during appt yesterday. Patient reports he drinks 1 bottle of water daily. Review of Systems - Review of Systems Constitutional: Present: chills, fatigue. Absent: fever EYE: Present: no symptoms reported ENT: Present: no symptoms reported. Absent: nasal drainage, sore throat Respiratory: Present: shortness of breath, cough Cardiology: Present: no symptoms reported. Absent: chest pain Gastrointestinal/Abdominal: Present: no symptoms reported. Absent: nausea, vomiting, diarrhea, abdominal pain Genitourinary: Present: frequency. Absent: pain, dysuria, hematuria Musculoskeletal: Present: joint pain Skin: Present: no symptoms reported. 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 History of benign bladder tumor Onset Date: Unknown History of renal calculi Onset Date: Unknown History of squamous cell carcinoma Onset Date: ~2011 Surgical History: Surgical History (Updated 02/25/19 @ 09:44 by Arlin Russo CMA) History of back surgery Onset Date: Unknown History of hip surgery Onset Date: ~02/09/19 Rt femur ENT AP and Lat INCL AP and Lat hip History of nephroureterectomy Onset Date: 03/16/18 left kidney-robotic surgical pathology high-grade urothelial carcinoma History of prostatectomy Onset Date: Unknown History of vasectomy Onset Date: Unknown Family History: Family History (Updated 05/23/18 @ 11:06 by Arlin Russo CMA) Father CVA (cerebral vascular accident) CAD (coronary artery disease) Mother Cancer Social History: (Last Reviewed 05/09/19 @ 11:34 by CASSIE Dorsey) Social History: Marital status: Service: Yes branch: [employer] status: retired Tobacco: Smoking Status: Former smoker Alcohol: alcohol intake: former Substance Use: substance use type: does not use Dietary Habits: caffeine: Yes Physical Exam - Physical Exam General Appearance: Present: wd/wn, alert, no apparent distress, thin Head Exam: Present: normal inspection Eye Exam: Normal inspection: bilateral Respiratory: Present: no accessory muscle use, decreased breath sounds, wheezing - expiratory to right lower Cardiovascular/Chest: Present: no murmur, tachycardia Gastrointestinal/Abdominal: Present: normal bowel sounds, nontender, nondistended, soft, no organomegaly Neurological Exam: Present: alert, oriented, normal mood/affect, no motor/sensory deficits Skin Exam: Present: normal color, warm/dry Progress - Date and Time Seen: Date and Time: 05/09/19 12:12 Message left for oncology [facility] to discuss patient care, awaiting return call. 05/09/19 12:49 PSI score Risk Class V. Discussed with patient for possible hospital acquired pneumonia, UTI and high PSI score will admit for IV antibiotics, patient agreed with admission. Discussed case with and will admit for pneumonia and UTI. - Results and Orders Patient's Lab Results:: I have reviewed the patient's lab results. - Vital Signs Patient's Vital Signs:: I have reviewed the patient's vital signs. Vital Signs: Vital Signs 05/09/19 10:51 Temperature 37.0 C Pulse Rate 102 H Respiratory Rate 16 Blood Pressure 152/90 H O2 Sat by Pulse Oximetry 97 - X-Ray X-Ray #1 X-Ray: chest Interpretation: Reviewed by me X-ray Comments: IMPRESSION: 1. New peripheral infiltrates suggested in the left lower lobe at the basal segments. Correlate clinically for pneumonia. Recommend follow-up to document resolution. 2. Grossly stable findings compatible with emphysema. Electronically signed by Concepcion Delgado M.D.. - Progress/Reassessment Chief Complaint: Genitourinary Problem Departure Clinical Impression: UTI (urinary tract infection) Qualifiers: Urinary tract infection type: site unspecified Hematuria presence: without hematuria Qualified Code(s): N39.0 - Urinary tract infection, site not specified Pneumonia Qualifiers: Pneumonia type: due to unspecified organism Laterality: left Lung location: lower lobe of lung Qualified Code(s): J18.1 - Lobar pneumonia, unspecified organism - Departure Disposition: Still a patient Condition: Fair
[2019-05-09 11:40] LABS: Albumin * 3.2 gm/dl (3.4-5.0); Anion Gap 17.6 mmol/L (6.8-13.8); BUN/Creatinine Ratio 28.1 (9.0-21.6); Bilirubin, Total 0.4 mg/dL (0.0-1.1); Ca. Corrected For Albumin 9.8 mg/dL (8.4-10.2); Calcium * 9.5 mg/dL (7.9-10.9); Carbon Dioxide 28.6 mmol/L (24-32.6); Potassium 4.2 mmol/L (3.4-4.6); Total Protein 8.7 gm/dL (6.2-8.2)
[2019-05-09] MEDS ORDERED: LEVOFLOXACIN IN DEXTROSE 5 % 500 MG/100 ML BAG IV SCH (13:00)
[2019-05-09] MEDS ORDERED: ALBUTEROL SULFATE 2.5 MG/0.5 ML VIAL.NEB IH PRN (16:57)
[2019-05-09] MEDS ORDERED: ACETAMINOPHEN 500 MG TABLET PO PRN (16:57)
--- NOTE | 2019-05-09 17:01 | HP ---
Chief Complaint - Chief Complaint Date of Service: 05/09/19 Time of Service: 13:02 Chief Complaint: Weakness, shortness of breath and dry cough, urinary frequency for 1 day History of Present Illness: 83-year-old male with a past medical history of COPD, bladder tumor with metastasis to the bone and left kidney currently undergoing chemotherapy at [facility]. He presented with complaints of weakness, shortness of breath and urinary frequency. He is status post left nephroureterectomy. He was seen yesterday at [place] for a dose of chemotherapy which he states he gets every 3 weeks and this is his third dose. At the visit he was told that he was dehydrated and should get repeat blood work. He called his primary care physician, today and was told to go to the emergency department for blood work. In the ER he was found to have chest x-ray with new peripheral infiltrate in the left lower lobe basal segments concerning for pneumonia. UA was also positive. He is being admitted for pneumonia and UTI and started on Levaquin. 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 History of benign bladder tumor Onset Date: Unknown History of renal calculi Onset Date: Unknown History of squamous cell carcinoma Onset Date: ~2011 Surgical History: Surgical History (Updated 05/09/19 @ 17:01 by Raven Chirinos MD) History of back surgery Onset Date: Unknown History of hip surgery Onset Date: ~02/09/19 Rt femur ENT AP and Lat INCL AP and Lat hip History of nephroureterectomy Onset Date: 03/16/18 left kidney-robotic surgical pathology high-grade urothelial carcinoma History of prostatectomy Onset Date: Unknown History of vasectomy Onset Date: Unknown Family History: Family History (Updated 05/23/18 @ 11:06 by Arlin Russo CMA) Father CVA (cerebral vascular accident) CAD (coronary artery disease) Mother Cancer Social History: (Last Reviewed 05/09/19 @ 14:17 by Irina Bustamante RN) Social History: Marital status: Service: Yes branch: [employer] status: retired Tobacco: Smoking Status: Former smoker Alcohol: alcohol intake: former Substance Use: substance use type: does not use Dietary Habits: caffeine: Yes Review Of Systems (GEN) - Review of Systems Generalized/Overall Review: Present: Weakness, Malaise. Absent: Chills, Fever EENTM: Absent: Eye Pain Respiratory: Present: Cough, Shortness of Breath Cardiac: Absent: Chest Pain Abdominal: Absent: Abdominal Pain Genitourinary: Present: Frequency. Absent: Burning Misc: All systems neg except as marked Immunizations: IMMUNIZATION HX Immunizations Up to Date Yes History of Influenza Vaccine Yes Hx Pneumococcal Vaccination No Allergies/Adverse Reactions: Allergies Allergy/AdvReac Type Severity Reaction Status Date / Time No Known Allergies Allergy Verified 05/09/19 14:17 Home Medications: HOME MEDICATIONS ipratropium-albuterol 0.5 mg-3 mg(2.5 mg base)/3 mL nebulization soln 3 ml IH QID #180 ml 05/29/18 [Last Taken Unknown] albuterol sulfate HFA 90 mcg/actuation aerosol inhaler 1 - 2 puff IH Q4H PRN #18 g 09/19/18 [Last Taken Unknown] glycopyrrolate 9 mcg-formoterol 4.8 mcg HFA aerosol inhaler 2 puff IH BID 09/27/18 [Last Taken Unknown] acetaminophen 500 mg tablet 500 mg PO Q12H PRN tab 02/25/19 [Last Taken Unknown] fluorouracil 5 % topical cream 1 applic TP BID 02/25/19 [Last Taken Unknown] Exam - Exam Vital Signs: Vital Signs - Last Taken Temp 36.6 C 05/09/19 13:55 Pulse 85 05/09/19 13:55 Resp 20 05/09/19 13:55 BP 135/64 05/09/19 13:55 Pulse Ox 100 05/09/19 13:55 Constitutional: Present: Alert, Cooperative, Well developed, Well nourished, Elderly, Thin and frail ENT Exam: Present: hearing grossly normal Eye Exam: bilateral eye: normal inspection, PERRL, EOMI Neck: Present: non-tender, trachea midline. Absent: lymphadenopathy (R), lymphadenopathy (L) Back Exam: Present: normal inspection, no CVA tenderness, no vertebral tenderness. Absent: CVA tenderness (R), CVA tenderness (L) Respiratory: Present: no respiratory distress, no accessory muscle use, decreased breath sounds - Throughout all lung, No wheezing. Absent: crackles, rhonchi Cardiovascular/Chest: Present: normal peripheral pulses, regular rate, rhythm, no murmur Peripheral Pulses: dorsalis-pedis (R): 1+, dorsalis-pedis (L): 1+ Abdomen: Present: Normal bowel sounds, soft, nontender Extremity: Present: normal inspection, no pedal edema Skin Exam: Present: normal color, warm/dry Neurologic: Present: alert, normal mood/affect Appearance: Present: appropriate appearance, appropriate insight Eye contact: Present: cooperative, good eye contact Thoughts: Present: normal thought pattern, normal mood /affect Diagnostic Studies: Abnormal Lab Results 05/09/19 05/09/19 05/09/19 Range/Units 11:09 11:13 11:13 RBC 3.83 L (4.7-6.0) M/mm3 Hgb 12.7 L (13.5-18.0) gm/dL Hct 39.0 L (42.0-52.0) % MCV 101.8 H (78-100) fl MCH 33.2 H (27-31) pg RDW 14.1 H (11.5-14.0) % Immature Gran % (Auto) 0.50 H (0.001-0.429) % Immature Gran # (Auto) 0.05 H (0.000-0.0310) K/mm3 Neutrophils % 76.9 H (42-75.0) % Lymphocytes % 10.2 L (20-51) % Monocytes % 10.8 H (0.0-9) % Neutrophils # 7.0 H (1.3-6.0) K/mm3 Lymphocytes # 0.93 L (1.5-3.5) k/mm3 Sodium 145 H (132-142) mmol/L Plasma Sodium 145 H (130-142) mmol/L Anion Gap 17.6 H (6.8-13.8) mmol/L BUN 43 H D (6-23) mg/dL Creatinine 1.53 H (0.4-1.4) mg/dL Est GFR (Non-Af Amer) 47 L (60-130) mL/min BUN/Creatinine Ratio 28.1 H (9.0-21.6) Random Glucose 125 H (70-110) mg/dL ALT 16 L (19-67) U/L Alkaline Phosphatase 172 H (50-170) U/L Total Protein 8.7 H (6.2-8.2) gm/dL Albumin 3.2 L (3.4-5.0) gm/dl Urine Protein 100 H (NEGATIVE) mg/dL Urine Blood 25 H (NEGATIVE) /ul Ur Leukocyte Esterase 500 H (NEGATIVE) /ul Urine RBC 10-25 H (0-5) /hpf Urine WBC >50 H (0-5) /hpf Urine Bacteria 2+ H (NONE) Laboratory Results WBC 9.2 K/mm3 (4.0-10.5) 05/09/19 11:13 RBC 3.83 M/mm3 (4.7-6.0) L 05/09/19 11:13 Hgb 12.7 gm/dL (13.5-18.0) L 05/09/19 11:13 Hct 39.0 % (42.0-52.0) L 05/09/19 11:13 MCV 101.8 fl (78-100) H 05/09/19 11:13 MCH 33.2 pg (27-31) H 05/09/19 11:13 MCHC 32.6 g/dl (32-36) 05/09/19 11:13 RDW 14.1 % (11.5-14.0) H 05/09/19 11:13 Plt Count 245 K/mm3 (150-450) 05/09/19 11:13 MPV 9.3 fl (8-11.3) 05/09/19 11:13 Immature Gran % (Auto) 0.50 % (0.001-0.429) H 05/09/19 11:13 Immature Gran # (Auto) 0.05 K/mm3 (0.000-0.0310) H 05/09/19 11:13 76.9 % (42-75.0) H 05/09/19 11:13 10.2 % (20-51) L 05/09/19 11:13 10.8 % (0.0-9) H 05/09/19 11:13 1.2 % (0.0-3.0) 05/09/19 11:13 0.4 % (0.0-1.0) 05/09/19 11:13 Nucleated RBC % 0.0 k/mm3 (0-1) 05/09/19 11:13 7.0 K/mm3 (1.3-6.0) H 05/09/19 11:13 0.93 k/mm3 (1.5-3.5) L 05/09/19 11:13 1.0 k/mm3 (0.0-1.0) 05/09/19 11:13 0.1 k/mm3 (0.0-0.7) 05/09/19 11:13 Absolute Basophils 0.0 k/mm3 (0.0-0.1) 05/09/19 11:13 Sodium 145 mmol/L (132-142) H 05/09/19 11:13 145 mmol/L (130-142) H 05/09/19 11:13 Potassium 4.2 mmol/L (3.4-4.6) 05/09/19 11:13 Chloride 103 mmol/L (97-106) 05/09/19 11:13 Carbon Dioxide 28.6 mmol/L (24-32.6) 05/09/19 11:13 17.6 mmol/L (6.8-13.8) H 05/09/19 11:13 BUN 43 mg/dL (6-23) H D 05/09/19 11:13 1.53 mg/dL (0.4-1.4) H 05/09/19 11:13 Est GFR (Non-Af Amer) 47 mL/min (60-130) L 05/09/19 11:13 28.1 (9.0-21.6) H 05/09/19 11:13 125 mg/dL (70-110) H 05/09/19 11:13 Calcium 9.5 mg/dL (7.9-10.9) 05/09/19 11:13 Calcium Adj for Albumin 9.8 mg/dL (8.4-10.2) 05/09/19 11:13 0.4 mg/dL (0.0-1.1) 05/09/19 11:13 AST 19 U/L (0-48) 05/09/19 11:13 ALT 16 U/L (19-67) L 05/09/19 11:13 172 U/L (50-170) H 05/09/19 11:13 8.7 gm/dL (6.2-8.2) H 05/09/19 11:13 3.2 gm/dl (3.4-5.0) L 05/09/19 11:13 Yellow 05/09/19 11:09 Slightly cloudy (CLEAR) 05/09/19 11:09 5.5 pH (5.0-7.0) 05/09/19 11:09 Ur Specific [place] 1.025 SP.GR. (1.005-1.030) 05/09/19 11:09 100 mg/dL (NEGATIVE) H 05/09/19 11:09 Negative mg/dL (NEGATIVE) 05/09/19 11:09 Negative mg/dL (NEGATIVE) 05/09/19 11:09 25 /ul (NEGATIVE) H 05/09/19 11:09 Negative (NEGATIVE) 05/09/19 11:09 Negative mg/dl (NEGATIVE) 05/09/19 11:09 Prot Sulfosalicylic Acd QNS 05/09/19 11:09 Normal EU/dl (NORMAL) 05/09/19 11:09 Ur Leukocyte Esterase 500 /ul (NEGATIVE) H 05/09/19 11:09 10-25 /hpf (0-5) H 05/09/19 11:09 >50 /hpf (0-5) H 05/09/19 11:09 Ur Epithelial Cells 0-5 /hpf (0-5) 05/09/19 11:09 2+ (NONE) H 05/09/19 11:09 Culture to follow 05/09/19 11:09 Assessment/Plan - Narrative Narrative: 83-year-old male with a past medical history of COPD, bladder tumor with metas tasis to the bone and left kidney currently undergoing chemotherapy at [facility]. He presented with complaints of weakness, shortness of breath and urinary frequency. In the ER he was found to have chest x-ray with new peripheral infiltrate in the left lower lobe basal segments concerning for pneumonia. UA was also positive. Due to these findings he has been admitted for pneumonia and UTI and started on Levaquin. - Assessment/Plan (1) Pneumonia Assessment: He has a left lower lobe. Start Levaquin 500 mg IV, day 1 of 7. Problem: Acute Qualifiers: Pneumonia type: due to other aerobic Gram-negative bacteria Laterality: left Lung location: lower lobe of lung Qualified Code(s): J15.6 - Pneumonia due to other Gram-negative bacteria (2) Urinary tract infection Assessment: UA is positive. Awaiting urine culture results. Continue with Levaquin. Problem: Acute Qualifiers: Urinary tract infection type: site unspecified Hematuria presence: without hematuria Qualified Code(s): N39.0 - Urinary tract infection, site not specified (3) COPD (chronic obstructive pulmonary disease) Assessment: Stable, resume home medications. Problem: Chronic Qualifiers: COPD type: unspecified COPD Qualified Code(s): J44.9 - Chronic obstructive pulmonary disease, unspecified (4) Hypernatremia Assessment: Start D5 half-normal saline at 70 cc/hour. Problem: Acute (5) Acute kidney injury Assessment: Baseline creatinine is 1.27 with GFR of 60. Start IV fluid hydration. Problem: Acute
[2019-05-09] MEDS: DEXTROSE 5% IV PRN (17:25)
[2019-05-09] MEDS: [UNRECOGNIZED DRUG - OTHER] IV PRN (17:25)
[2019-05-09] MEDS ORDERED: FLUOROURACIL TP PRN (17:40)
[2019-05-09] MEDS: ALBUTEROL SULFATE/IPRATROPIUM 3 ML NEBU IH SCH (18:10)
[2019-05-09] MEDS: FORMOTEROL FUMARATE 20 MCG/2 ML VIAL IH SCH (18:11)
[2019-05-09] MEDS: ENOXAPARIN SODIUM 30 MG/0.3 ML SYRG SC SCH (18:36)
[2019-05-09] MEDS ORDERED: LEVOFLOXACIN IN DEXTROSE 5 % 250 MG/50 ML BAG IV ONE (19:00)
[2019-05-09] MEDS ORDERED: FORMOTEROL FUM IH SCH (21:00)
[2019-05-09] MEDS ORDERED: GLYCOPYRROLATE IH SCH (21:00)
[2019-05-09] MEDS ORDERED: [UNRECOGNIZED DRUG - OTHER] IH SCH (21:00)
[2019-05-10 05:34] LABS: Hematocrit 33.4 % (42.0-52.0); Hemoglobin 10.7 gm/dL (13.5-18.0); Mean Cell Volume 100.6 fl (78-100); Mean Corpuscular Hemoglobin 32.2 pg (27-31); Neutrophil % 73.4 % (42-75.0); Platelet Count 191 K/mm3 (150-450); Red Blood Count 3.32 M/mm3 (4.7-6.0); Red Cell Distribution Width 13.8 % (11.5-14.0); White Blood Count 6.8 K/mm3 (4.0-10.5)
[2019-05-10 05:46] LABS: Albumin * 2.4 gm/dl (3.4-5.0); Anion Gap 13.7 mmol/L (6.8-13.8); Bilirubin, Total 0.3 mg/dL (0.0-1.1); Ca. Corrected For Albumin 9.3 mg/dL (8.4-10.2); Calcium * 8.3 mg/dL (7.9-10.9); Carbon Dioxide 26.8 mmol/L (24-32.6); Potassium 3.5 mmol/L (3.4-4.6); Total Protein 6.9 gm/dL (6.2-8.2)
[2019-05-10] MEDS: ALBUTEROL SULFATE/IPRATROPIUM 3 ML NEBU IH SCH ×4 (06:00→18:05)
[2019-05-10] MEDS: FORMOTEROL FUMARATE 20 MCG/2 ML VIAL IH SCH ×2 (06:03→18:06)
[2019-05-10 06:17] LABS: BUN/Creatinine Ratio 24.8 (9.0-21.6)
[2019-05-10] MEDS: DEXTROSE 5% IV PRN ×2 (06:41→20:06)
[2019-05-10] MEDS: [UNRECOGNIZED DRUG - OTHER] IV PRN ×2 (06:41→20:06)
[2019-05-10] MEDS: CALCIUM CARBONATE 500 MG TAB.CHEW PO SCH (08:21)
[2019-05-10] MEDS: TIOTROPIUM BROMIDE 5 CAP INHALER IH SCH (08:21)
[2019-05-10] MEDS ORDERED: LISINOPRIL 5 MG TABLET PO SCH (09:30)
--- NOTE | 2019-05-10 11:21 | PN ---
Subjective - Date and Time Seen Date: 05/10/19 Time: 09:30 Subjective Narrative: He states he feels better. He does get short of breath with ambulation, denies shortness of breath at rest. Denies cough. Objective - Review of Systems Generalized/Overall Review: Denies: Chills, Fever EENTM: Denies: Eye Pain, Ear Pain Respiratory: Reports: Cough, Shortness of Breath Cardiac: Denies: Edema Abdominal: Denies: Abdominal Pain Genitourinary Symptoms: Reports: Frequency Misc: All systems neg except as marked - Vitals Vitals: Last Vital Signs Temp 36.8 C 05/10/19 09:57 Pulse 91 05/10/19 10:56 Resp 17 05/10/19 10:56 BP 147/77 05/10/19 09:57 Pulse Ox 98 05/10/19 10:46 - Abnormal Lab Findings Abnormal Lab Findings: Abnormal Lab Results 05/09/19 05/09/19 05/09/19 Range/Units 11:09 11:13 11:13 RBC 3.83 L (4.7-6.0) M/mm3 Hgb 12.7 L (13.5-18.0) gm/dL Hct 39.0 L (42.0-52.0) % MCV 101.8 H (78-100) fl MCH 33.2 H (27-31) pg RDW 14.1 H (11.5-14.0) % Immature Gran % (Auto) 0.50 H (0.001-0.429) % Immature Gran # (Auto) 0.05 H (0.000-0.0310) K/mm3 Neutrophils % 76.9 H (42-75.0) % Lymphocytes % 10.2 L (20-51) % Monocytes % 10.8 H (0.0-9) % Neutrophils # 7.0 H (1.3-6.0) K/mm3 Lymphocytes # 0.93 L (1.5-3.5) k/mm3 Sodium 145 H (132-142) mmol/L Plasma Sodium 145 H (130-142) mmol/L Chloride (97-106) mmol/L Anion Gap 17.6 H (6.8-13.8) mmol/L BUN 43 H D (6-23) mg/dL Creatinine 1.53 H (0.4-1.4) mg/dL Est GFR (Non-Af Amer) 47 L (60-130) mL/min BUN/Creatinine Ratio 28.1 H (9.0-21.6) Random Glucose 125 H (70-110) mg/dL ALT 16 L (19-67) U/L Alkaline Phosphatase 172 H (50-170) U/L Total Protein 8.7 H (6.2-8.2) gm/dL Albumin 3.2 L (3.4-5.0) gm/dl Urine Protein 100 H (NEGATIVE) mg/dL Urine Blood 25 H (NEGATIVE) /ul Ur Leukocyte Esterase 500 H (NEGATIVE) /ul Urine RBC 10-25 H (0-5) /hpf Urine WBC >50 H (0-5) /hpf Urine Bacteria 2+ H (NONE) 05/10/19 05/10/19 Range/Units 05:20 05:20 RBC 3.32 L (4.7-6.0) M/mm3 Hgb 10.7 L (13.5-18.0) gm/dL Hct 33.4 L (42.0-52.0) % MCV 100.6 H (78-100) fl MCH 32.2 H (27-31) pg RDW (11.5-14.0) % Immature Gran % (Auto) 0.90 H (0.001-0.429) % Immature Gran # (Auto) 0.06 H (0.000-0.0310) K/mm3 Neutrophils % (42-75.0) % Lymphocytes % 10.6 L (20-51) % Monocytes % 13.1 H (0.0-9) % Neutrophils # (1.3-6.0) K/mm3 Lymphocytes # 0.72 L (1.5-3.5) k/mm3 Sodium 144 H (132-142) mmol/L Plasma Sodium 144 H (130-142) mmol/L Chloride 107 H (97-106) mmol/L Anion Gap (6.8-13.8) mmol/L BUN 36 H (6-23) mg/dL Creatinine 1.45 H (0.4-1.4) mg/dL Est GFR (Non-Af Amer) 50 L (60-130) mL/min BUN/Creatinine Ratio 24.8 H (9.0-21.6) Random Glucose (70-110) mg/dL ALT 12 L (19-67) U/L Alkaline Phosphatase (50-170) U/L Total Protein (6.2-8.2) gm/dL Albumin 2.4 L (3.4-5.0) gm/dl Urine Protein (NEGATIVE) mg/dL Urine Blood (NEGATIVE) /ul Ur Leukocyte Esterase (NEGATIVE) /ul Urine RBC (0-5) /hpf Urine WBC (0-5) /hpf Urine Bacteria (NONE) - Exam Constitutional: Present: Alert, Cooperative, Well developed, Well nourished, No distress, Elderly, Thin and frail ENT Exam: Present: hearing grossly normal Neck: Present: non-tender, supple, trachea midline. Absent: lymphadenopathy (R), lymphadenopathy (L) Respiratory: Present: no respiratory distress, no accessory muscle use, decreased breath sounds - All all lung [place] bilaterally, No wheezing. 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. He presented with complaints of weakness, shortness of breath and urinary frequency. In the ER he was found to have chest x-ray with new peripheral infiltrate in the left lower lobe basal segments concerning for pneumonia. UA was also positive. Due to these findings he has been admitted for pneumonia and UTI and started on Levaquin. The urine is growing gram-negative bacilli. We will continue with Levaquin for his pneumonia as well as the UTI. Awaiting urine culture and sensitivities. Continue with Levaquin 750 mg IV every 48 hours due to his poor renal function. - Problems/Diagnosis (1) Pneumonia Problem: Acute Qualifiers: Pneumonia type: due to other aerobic Gram-negative bacteria Laterality: left Lung location: lower lobe of lung Qualified Code(s): J15.6 - Pneumonia due to other Gram-negative bacteria (2) Urinary tract infection Problem: Acute Qualifiers: Urinary tract infection type: site unspecified Hematuria presence: without hematuria Qualified Code(s): N39.0 - Urinary tract infection, site not specified (3) COPD (chronic obstructive pulmonary disease) Problem: Chronic Qualifiers: COPD type: unspecified COPD Qualified Code(s): J44.9 - Chronic obstructive pulmonary disease, unspecified (4) Hypernatremia Problem: Acute Narrative: Improving continue with D5 half-normal saline and monitor BMP. (5) Acute kidney injury Problem: Acute Narrative: Improving continue with IV fluid hydration.
[2019-05-10] MEDS: ENOXAPARIN SODIUM 30 MG/0.3 ML SYRG SC SCH (20:03)
[2019-05-11 05:22] LABS: Hematocrit 32.2 % (42.0-52.0); Hemoglobin 10.4 gm/dL (13.5-18.0); Mean Cell Volume 100.3 fl (78-100); Mean Corpuscular Hemoglobin 32.4 pg (27-31); Mean Corpuscular Hgb Conc 32.3 g/dl (32-36); Mean Platelet Volume 8.9 fl (8-11.3); Neutrophil # 4.8 K/mm3 (1.3-6.0); Neutrophil % 71.2 % (42-75.0); Platelet Count 173 K/mm3 (150-450); Red Blood Count 3.21 M/mm3 (4.7-6.0); Red Cell Distribution Width 13.5 % (11.5-14.0); White Blood Count 6.7 K/mm3 (4.0-10.5)
[2019-05-11 05:35] LABS: Albumin * 2.2 gm/dl (3.4-5.0); Anion Gap 12.4 mmol/L (6.8-13.8); BUN/Creatinine Ratio 21.1 (9.0-21.6); Bilirubin, Total 0.3 mg/dL (0.0-1.1); Ca. Corrected For Albumin 8.9 mg/dL (8.4-10.2); Calcium * 7.8 mg/dL (7.9-10.9); Potassium 3.4 mmol/L (3.4-4.6); Total Protein 6.4 gm/dL (6.2-8.2)
[2019-05-11] MEDS: ALBUTEROL SULFATE/IPRATROPIUM 3 ML NEBU IH SCH ×2 (05:59→10:07)
[2019-05-11] MEDS: FORMOTEROL FUMARATE 20 MCG/2 ML VIAL IH SCH (05:59)
[2019-05-11] MEDS: TIOTROPIUM BROMIDE 5 CAP INHALER IH SCH (08:28)
[2019-05-11] MEDS: CALCIUM CARBONATE 500 MG TAB.CHEW PO SCH (08:29)
--- NOTE | 2019-05-11 11:36 | DS ---
(1) Urinary tract infection Problem: Acute Qualifiers: Urinary tract infection type: site unspecified Hematuria presence: without hematuria Qualified Code(s): N39.0 - Urinary tract infection, site not specified (2) Pneumonia Problem: Acute Qualifiers: Pneumonia type: due to other aerobic Gram-negative bacteria Laterality: left Lung location: lower lobe of lung Qualified Code(s): J15.6 - Pneumonia due to other Gram-negative bacteria (3) Metastatic cancer to bone Problem: Chronic (4) Acute kidney injury Problem: Resolved Date of Discharge:: 05/11/19 Description of Stay: Per his H&P done by the admitting physician, patient is an "83-year-old male with a past medical history of COPD, 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 He presented with complaints of weakness, shortness of breath and urinary frequency. He is status post left nephroureterectomy. He was seen yesterday at [facility] for a dose of chemotherapy which he states he gets every 3 weeks and this is his third dose. At the visit he was told that he was dehydrated and should get repeat blood work. He called his primary care physician, today and was told to go to the emergency department for blood work. In the ER he was found to have chest x-ray with new peripheral infiltrate in the left lower lobe basal segments concerning for pneumonia. UA was also positive. He is being admitted for pneumonia and UTI and started on Levaquin." His urinary frequency improved on the levaquin. Urine culture was positive for pseudomonas, susceptible to levaquin. On the day of DC, he was looking forward to going home. He reported still having some phlegm in his throat that improved with the nebulizer. His urinary frequency also improved. Will DC with levaquin. Procedures Performed: none Results and Findings: Pending Mircobiology Results 05/09/19 11:13 Blood Blood Culture - Preliminary NO GROWTH AFTER 48 HOURS 05/09/19 11:46 Blood Blood Culture - Preliminary NO GROWTH 24 HOURS Lab Pending Results 05/09/19 11:09: Urine Color Yellow, Urine Appearance Slightly cloudy, Urine pH 5.5, Ur Specific [place] 1.025, Urine Protein 100 H, Urine Glucose (UA) Negative, Urine Ketones Negative, Urine Blood 25 H, Urine Nitrate Negative, Urine Bilirubin Negative, Prot Sulfosalicylic Acd QNS, Urine Urobilinogen Normal, Ur Leukocyte Esterase 500 H, Urine RBC 10-25 H, Urine WBC >50 H, Ur Epithelial Cells 0-5, Urine Bacteria 2+ H, Urine Culture Comments Culture to follow 05/09/19 11:13: WBC 9.2, RBC 3.83 L, Hgb 12.7 L, Hct 39.0 L, MCV 101.8 H, MCH 33.2 H, MCHC 32.6, RDW 14.1 H, Plt Count 245, MPV 9.3, Immature Gran % (Auto) 0.50 H, Immature Gran # (Auto) 0.05 H, Neutrophils % 76.9 H, Lymphocytes % 10.2 L, Monocytes % 10.8 H, Eosinophils % 1.2, Basophils % 0.4, Nucleated RBC % 0.0, Neutrophils # 7.0 H, Lymphocytes # 0.93 L, Monocytes # 1.0, Eosinophils # 0.1, Absolute Basophils 0.0 05/09/19 11:13: Sodium 145 H, Plasma Sodium 145 H, Potassium 4.2, Chloride 103, Carbon Dioxide 28.6, Anion Gap 17.6 H, BUN 43 H D, Creatinine 1.53 H, Est GFR (Non-Af Amer) 47 L, BUN/Creatinine Ratio 28.1 H, Random Glucose 125 H, Calcium 9.5, Calcium Adj for Albumin 9.8, Total Bilirubin 0.4, AST 19, ALT 16 L, Alkaline Phosphatase 172 H, Total Protein 8.7 H, Albumin 3.2 L 05/10/19 05:20: WBC 6.8 D, RBC 3.32 L, Hgb 10.7 L, Hct 33.4 L, MCV 100.6 H, MCH 32.2 H, MCHC 32.0, RDW 13.8, Plt Count 191, MPV 9.0, Immature Gran % (Auto) 0.90 H, Immature Gran # (Auto) 0.06 H, Neutrophils % 73.4, Lymphocytes % 10.6 L, Monocytes % 13.1 H, Eosinophils % 1.6, Basophils % 0.4, Nucleated RBC % 0.0, Neutrophils # 5.0, Lymphocytes # 0.72 L, Monocytes # 0.9, Eosinophils # 0.1, Absolute Basophils 0.0 05/10/19 05:20: Sodium 144 H, Plasma Sodium 144 H, Potassium 3.5, Chloride 107 H, Carbon Dioxide 26.8, Anion Gap 13.7, BUN 36 H, Creatinine 1.45 H, Est GFR (Non-Af Amer) 50 L, BUN/Creatinine Ratio 24.8 H, Random Glucose 106, Calcium 8.3, Calcium Adj for Albumin 9.3, Total Bilirubin 0.3, AST 14, ALT 12 L, Alkaline Phosphatase 129, Total Protein 6.9, Albumin 2.4 L 05/11/19 05:19: WBC 6.7, RBC 3.21 L, Hgb 10.4 L, Hct 32.2 L, MCV 100.3 H, MCH 32.4 H, MCHC 32.3, RDW 13.5, Plt Count 173, MPV 8.9, Immature Gran % (Auto) 0.40, Immature Gran # (Auto) 0.03, Neutrophils % 71.2, Lymphocytes % 13.5 L, Monocytes % 12.4 H, Eosinophils % 2.2, Basophils % 0.3, Nucleated RBC % 0.0, Neutrophils # 4.8, Lymphocytes # 0.90 L, Monocytes # 0.8, Eosinophils # 0.2, Absolute Basophils 0.0 05/11/19 05:19: Sodium 143 H, Plasma Sodium 143 H, Potassium 3.4, Chloride 107 H, Carbon Dioxide 27.0, Anion Gap 12.4, BUN 23, Creatinine 1.09, Est GFR (Non-Af Amer) 69 D, BUN/Creatinine Ratio 21.1, Random Glucose 108, Calcium 7.8 L, Calcium Adj for Albumin 8.9, Total Bilirubin 0.3, AST 13, ALT 9 L, Alkaline Phosphatase 117, Total Protein 6.4, Albumin 2.2 L Discharge Location: Home Disposition: Home self-care Condition: Fair Discharge Activity: Activity as tolerated Discharge Diet: General/regular food Referrals: Preeti Arzola MD [Primary Care Provider] - One Week Additional Patient Instructions (free text): Please fax records from stay to Dr Maurer's office. Make sure to include UA and culture results. . -Please make TCM appointment unless [facility] discharge, or if following up with outside provider. Thank you! Marquita @ [phone] or Shameka at [phone]. Prescriptions (Any new or edited meds): Levofloxacin [Levaquin] 750 mg PO DAILY #3 tab Complete Home Medications List: Complete Home Medication List: ipratropium-albuterol 0.5 mg-3 mg(2.5 mg base)/3 mL nebulization soln 3 ml IH QID #180 ml 05/29/18 albuterol sulfate HFA 90 mcg/actuation aerosol inhaler 1 - 2 puff IH Q4H PRN #18 g 09/19/18 glycopyrrolate 9 mcg-formoterol 4.8 mcg HFA aerosol inhaler 2 puff IH BID 09/27/18 acetaminophen 500 mg tablet 500 mg PO Q12H PRN tab 02/25/19 fluorouracil 5 % topical cream 1 applic TP BID PRN 02/25/19 Calcium Carbonate [Calcium] 600 mg PO DAILY 05/09/19 Ibuprofen [Motrin] 600 mg PO Q6H PRN 05/09/19 guaiFENesin [Mucinex] 600 mg PO BID 05/09/19 Levofloxacin [Levaquin] 750 mg PO DAILY #3 tab 05/11/19
[2019-05-11 12:48] VITALS: BP 138/74
[2019-05-11] MEDS ORDERED: LEVOFLOXACIN IN DEXTROSE 5 % 750 MG/150 ML BAG IV SCH (13:00)
[2019-05-11] MEDS ORDERED: ENOXAPARIN SODIUM 40 MG/0.4 ML SYRG SC SCH (19:00)
== END 2019-05-11 13:15 | disposition home or self-care (01) | DRG 178 ==
LOC: ER 10:46 → MS 13:07
PROVIDERS: ADMIT Internal Medicine; ATTEND Internal Medicine
CPT/HCPCS: 36415; 71020; 71046; 80053; 81001; 85025; 87040; 87077; 87086; 87186; 94640; 94664; 99285

== ENCOUNTER 2019-12-16 20:52 | Observation (INO) ==
[2019-12-16 21:43] LABS: Hematocrit 39.3 % (42.0-52.0); Hemoglobin 12.7 gm/dL (13.5-18.0); Mean Cell Volume 98.5 fl (78-100); Mean Corpuscular Hemoglobin 31.8 pg (27-31); Mean Corpuscular Hgb Conc 32.3 g/dl (32-36); Mean Platelet Volume 8.5 fl (8-11.3); Neutrophil # 12.4 K/mm3 (1.3-6.0); Neutrophil % 86.3 % (42-75.0); Platelet Count 226 K/mm3 (150-450); Red Blood Count 3.99 M/mm3 (4.7-6.0); Red Cell Distribution Width 15.9 % (11.5-14.0); White Blood Count 14.4 K/mm3 (4.0-10.5)
--- NOTE | 2019-12-16 21:55 | ERNOTE ---
Dyspnea - General Presenting Symptoms: shortness of breath Time Seen by Provider: 12/16/19 21:02 Source: patient Exam Limitations: no limitations - Immun/Allergies/Home Medications Immunizations: IMMUNIZATION HX Immunizations Up to Date Yes History of Influenza Vaccine Yes Hx Pneumococcal Vaccination No Allergies/Adverse Reactions: Allergies No Known Allergies Allergy (Verified 12/16/19 21:21) Home Medications: HOME MEDICATIONS ipratropium 0.5 mg-albuterol 3 mg (2.5 mg base)/3 mL nebulization soln 3 ml IH QID #180 ml 05/29/18 [Last Taken Unknown] glycopyrrolate 9 mcg-formoterol 4.8 mcg HFA aerosol inhaler 2 puff IH BID 09/27/18 [Last Taken Unknown] fluorouracil 5 % topical cream 1 applic TP BID PRN 02/25/19 [Last Taken Unknown] Calcium Carbonate [Calcium] 600 mg PO DAILY 05/09/19 [Last Taken Unknown] albuterol sulfate 2.5 mg IH Q6H PRN ml 09/06/19 [Last Taken Unknown] benzonatate 100 mg capsule 100 mg PO BID-TID PRN 09/06/19 [Last Taken Unknown] budesonide 0.5 mg/2 mL suspension for nebulization 2 ml IH BID 09/06/19 [Last Taken Unknown] cetirizine 10 mg tablet 5 mg PO DAILY PRN 09/06/19 [Last Taken Unknown] dextromethorphan-guaifenesin 30 mg-600 mg tablet extended [id number] hr 1 tab PO Q12H 09/06/19 [Last Taken Unknown] Apixaban [Eliquis] 2.5 mg PO BID 10/18/19 [Last Taken Unknown] - History of Present Illness Narrative: Patient states he has had difficulty with COPD over the past few months. He recently finished a prednisone taper 4 days ago. He immediately started getting worse with increased dry cough, and malaise. Severity: moderate, severe Treatment [employer]: by patient, albuterol Initiating event: Reports: unknown Frequency of episodes: Reports: frequent episodes Modifying Factors - (Improves): Reports: albuterol Modifying Factors (Worsens): Reports: activity Associated Symptoms-Dyspnea: Reports: palpitations, cough, weakness Prior Treatment: Reports: recently seen, treated by physician Review of Systems - Review of Systems Constitutional: Present: recent illness, chills, fatigue EYE: Absent: vision changes ENT: Present: nose congestion, nasal drainage Respiratory: Present: shortness of breath, cough Cardiology: Present: palpitations. 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 History of benign bladder tumor Onset Date: Unknown History of renal calculi Onset Date: Unknown History of squamous cell carcinoma Onset Date: ~2011 Surgical History: Surgical History (Last Reviewed 12/17/19 @ 00:32 by Molly Bhagat RN) History of back surgery Onset Date: Unknown History of hip surgery Onset Date: ~02/09/19 Rt femur ENT AP and Lat INCL AP and Lat hip History of nephroureterectomy Onset Date: 03/16/18 left kidney-robotic surgical pathology high-grade urothelial carcinoma History of prostatectomy Onset Date: Unknown History of vasectomy Onset Date: Unknown Family History: Family History (Last Reviewed 12/17/19 @ 00:32 by Molly Bhagat RN) Father CVA (cerebral vascular accident) CAD (coronary artery disease) Mother Cancer Social History: (Last Reviewed 12/17/19 @ 00:32 by Molly Bhagat RN) Social History: Marital status: Service: Yes branch: [employer] status: retired Tobacco: Smoking Status: Former smoker Alcohol: alcohol intake: former Substance Use: substance use type: does not use Dietary Habits: caffeine: Yes Physical Exam - Physical Exam General Appearance: Present: wd/wn, alert, mild distress Head Exam: Present: normal inspection, no evidence of injury Ears, Nose, Throat: Present: normal pharynx Neck: Present: normal inspection, nontender, supple Respiratory: Present: no respiratory distress, normal breath sounds, lungs clear Cardiovascular/Chest: Present: regular rate, rhythm, no murmur Back Exam: Present: normal inspection, no CVA tenderness Extremity Exam: Present: normal inspection, normal range of motion, no edema Neurological Exam: Present: alert, oriented, normal mood/affect Skin Exam: Present: normal color, warm/dry Lymphatic Exam: Present: no adenopathy Progress - Results and Orders Patient's Lab Results:: I have reviewed the patient's lab results. Results and Orders: Laboratory Tests 12/16/19 12/16/19 12/16/19 21:26 21:26 21:36 WBC 14.4 H Hgb 12.7 L Hct 39.3 L Plt Count 226 Neutrophils % 86.3 H Sodium Potassium Chloride Carbon Dioxide BUN Creatinine Random Glucose Lactic Acid, Venous Calcium Total Bilirubin AST ALT Alkaline Phosphatase B-Natriuretic Peptide Influenza Type A Ag Negative Influenza Type B Ag Negative Group A Strep Rapid Negative 12/16/19 12/16/19 21:36 21:36 WBC Hgb Hct Plt Count Neutrophils % Sodium 143 H Potassium 4.5 Chloride 106 Carbon Dioxide 25.2 BUN 38 H Creatinine 1.45 H Random Glucose 127 H Lactic Acid, Venous 1.3 Calcium 8.8 Total Bilirubin 0.7 AST 16 ALT 20 Alkaline Phosphatase 57 B-Natriuretic Peptide 421 Influenza Type A Ag Influenza Type B Ag Group A Strep Rapid - Vital Signs Patient's Vital Signs:: I have reviewed the patient's vital signs. Vital Signs: Vital Signs 12/16/19 21:12 12/16/19 21:25 Temperature 38.3 C H Pulse Rate 133 H 127 H Respiratory Rate 22 H 35 H Blood Pressure 127/67 127/69 O2 Sat by Pulse Oximetry 92 L 92 L - EKG EKG #1 EKG: supraventricular tachycardia - sinus tach with PVC's, nonspecific ST T wave changes EKG read: Interp. by me - X-Ray X-Ray #1 X-Ray: chest Interpretation: Reviewed by me X-ray Comments: IMPRESSION: NO ACUTE CARDIOPULMONARY ABNORMALITY IDENTIFIED. Electronically signed by Wilian Niño D.O.. - Progress/Reassessment Progress Note-Subjective: 12/16/19 23:[address] Muse he agrees with admission gentle fluid hydration and IV antibiotics without any steroid use at this time.. Patient did present with fever and respiratory symptoms and with his age and co- morbidities he was tested for COVID-19 and will continue on airborne precautions at least until the test results are returned tomorrow afternoon. 12/17/19 01:26 Departure Clinical Impression: COPD with acute exacerbation - Departure Disposition: Still a patient Condition: Good
[2019-12-16 21:59] LABS: Albumin * 2.9 gm/dl (3.4-5.0); Anion Gap 16.3 mmol/L (6.8-13.8); BUN/Creatinine Ratio 26.2 (9.0-21.6); Bilirubin, Total 0.7 mg/dL (0.0-1.1); Ca. Corrected For Albumin 9.4 mg/dL (8.4-10.2); Calcium * 8.8 mg/dL (7.9-10.9); Carbon Dioxide 25.2 mmol/L (24-32.6); Potassium 4.5 mmol/L (3.4-4.6); Total Protein 7.2 gm/dL (6.2-8.2)
[2019-12-16] MEDS ORDERED: NORMAL SALINE 1,000 ML IV ONE (23:46)
[2019-12-16] MEDS ORDERED: ACETAMINOPHEN 325 MG TABLET PO PRN (23:47)
[2019-12-17 05:57] LABS: Urine Bilirubin Negative (NEGATIVE); Urine Blood 25 /ul (NEGATIVE); Urine Ketone 5 mg/dL (NEGATIVE); Urine Protein 30 mg/dL (NEGATIVE); Urine Urobilinogen Normal (NORMAL)
[2019-12-17 06:16] LABS: Urine Appearance Cloudy (CLEAR); Urine Bacteria 1+; Urine Color Yellow; Urine Nitrite Positive (NEGATIVE); Urine RBC >50 /hpf (0-5); Urine WBC >50 /hpf (0-5)
[2019-12-17 09:35] LABS: Hematocrit 38.5 % (42.0-52.0); Mean Corpuscular Hemoglobin 31.2 pg (27-31); Mean Corpuscular Hgb Conc 31.2 g/dl (32-36); Mean Platelet Volume 8.2 fl (8-11.3); Neutrophil # 14.7 K/mm3 (1.3-6.0); Neutrophil % 89.1 % (42-75.0); Platelet Count 193 K/mm3 (150-450); Red Blood Count 3.85 M/mm3 (4.7-6.0); Red Cell Distribution Width 15.9 % (11.5-14.0); White Blood Count 16.5 K/mm3 (4.0-10.5)
[2019-12-17 09:47] LABS: Albumin * 2.7 gm/dl (3.4-5.0); Anion Gap 13.2 mmol/L (6.8-13.8); BUN/Creatinine Ratio 21.6 (9.0-21.6); Bilirubin, Total 0.6 mg/dL (0.0-1.1); Calcium * 8.3 mg/dL (7.9-10.9); Carbon Dioxide 29.2 mmol/L (24-32.6); Potassium 4.4 mmol/L (3.4-4.6); Total Protein 7.2 gm/dL (6.2-8.2)
[2019-12-17] MEDS ORDERED: LORATADINE 10 MG TABLET PO PRN (09:49)
[2019-12-17] MEDS ORDERED: BENZONATATE 100 MG CAPSULE PO PRN (09:49)
[2019-12-17] MEDS ORDERED: ALBUTEROL SULFATE 2.5 MG/0.5 ML VIAL.NEB IH PRN (09:49)
[2019-12-17] MEDS ORDERED: FLUOROURACIL TP PRN (09:49)
[2019-12-17] MEDS: DEXTROMETHORPHAN PO SCH ×2 (10:19→21:51)
[2019-12-17] MEDS: GUAIFENESIN PO SCH ×2 (10:19→21:51)
--- NOTE | 2019-12-17 10:35 | HP ---
Chief Complaint - Chief Complaint Date of Service: 12/17/19 Time of Service: 09:15 Chief Complaint: Dyspnea on exertion, UTI, leukocytosis History of Present Illness: Patient states he has had difficulty with COPD over the past few months. He recently finished a prednisone taper 4 days ago. He immediately started getting worse with increased dry cough, and malaise. He has noticed an increase in shortness of breath since starting on this new chemotherapy drug. He only has dyspnea with exertion. He has chronically having some tachycardia. Vital signs are recorded heart rate from 110-125 at rest and increases to 1 30-1 40 walking to the bathroom. 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 History of benign bladder tumor Onset Date: Unknown History of renal calculi Onset Date: Unknown History of squamous cell carcinoma Onset Date: ~2011 Surgical History: Surgical History (Last Reviewed 12/17/19 @ 00:32 by Molly Bhagat RN) History of back surgery Onset Date: Unknown History of hip surgery Onset Date: ~02/09/19 Rt femur ENT AP and Lat INCL AP and Lat hip History of nephroureterectomy Onset Date: 03/16/18 left kidney-robotic surgical pathology high-grade urothelial carcinoma History of prostatectomy Onset Date: Unknown History of vasectomy Onset Date: Unknown Family History: Family History (Last Reviewed 12/17/19 @ 00:32 by Molly Bhagat RN) Father CVA (cerebral vascular accident) CAD (coronary artery disease) Mother Cancer Social History: (Last Reviewed 12/17/19 @ 00:32 by Molly Bhagat RN) Social History: Marital status: Service: Yes branch: [employer] status: retired Tobacco: Smoking Status: Former smoker Alcohol: alcohol intake: former Substance Use: substance use type: does not use Dietary Habits: caffeine: Yes Review Of Systems (GEN) - Review of Systems Generalized/Overall Review: Present: Weakness, Malaise EENTM: Present: No Symptoms Reported Respiratory: Present: Shortness of Breath Cardiac: Present: Other - Tachycardia Abdominal: Present: No Symptoms Reported Genitourinary: Present: No Symptoms Reported Musculoskeletal: Present: Other - Bone pain from metastatic disease Neurological: Present: No Symptoms Reported Skin: Present: Lesions Endocrine: Present: No Symptoms Reported Immunizations: IMMUNIZATION HX Immunizations Up to Date Yes History of Influenza Vaccine Yes Hx Pneumococcal Vaccination No Allergies/Adverse Reactions: Allergies Allergy/AdvReac Type Severity Reaction Status Date / Time No Known Allergies Allergy Verified 12/16/19 21:21 Home Medications: HOME MEDICATIONS ipratropium 0.5 mg-albuterol 3 mg (2.5 mg base)/3 mL nebulization soln 3 ml IH QID #180 ml 05/29/18 [Last Taken Unknown] glycopyrrolate 9 mcg-formoterol 4.8 mcg HFA aerosol inhaler 2 puff IH BID 09/27/18 [Last Taken Unknown] fluorouracil 5 % topical cream 1 applic TP BID PRN 02/25/19 [Last Taken Unknown] Calcium Carbonate [Calcium] 600 mg PO DAILY 05/09/19 [Last Taken Unknown] albuterol sulfate 2.5 mg IH Q6H PRN ml 09/06/19 [Last Taken Unknown] benzonatate 100 mg capsule 100 mg PO BID-TID PRN 09/06/19 [Last Taken Unknown] budesonide 0.5 mg/2 mL suspension for nebulization 2 ml IH BID 09/06/19 [Last Taken Unknown] cetirizine 10 mg tablet 5 mg PO DAILY PRN 09/06/19 [Last Taken Unknown] dextromethorphan-guaifenesin 30 mg-600 mg tablet extended hr 1 tab PO Q12H 09/06/19 [Last Taken Unknown] Apixaban [Eliquis] 2.5 mg PO BID 10/18/19 [Last Taken Unknown] Exam - Exam Vital Signs: Vital Signs - Last Taken Temp 37.1 C 12/17/19 07:00 Pulse 113 H 12/17/19 07:00 Resp 20 12/17/19 07:00 BP 137/68 12/17/19 07:00 Pulse Ox 97 12/17/19 07:00 Constitutional: Present: Alert, Oriented x3, Cooperative, Well developed, Well nourished, No distress ENT Exam: Present: normal ENT inspection, hearing grossly normal, muffled/hoarse voice Eye Exam: bilateral eye: normal inspection, PERRL, EOMI Neck: Present: non-tender, limited range of motion Back Exam: Present: normal inspection, no CVA tenderness, no vertebral tenderness Breasts: Present: Exam deferred Respiratory: Present: chest non-tender, lungs clear, decreased breath sounds, expiration (prolonged) Cardiovascular/Chest: Present: normal peripheral pulses, regular rate, rhythm, no chest tenderness, no edema, no gallop, no JVD, no murmur, no rub Peripheral Pulses: carotid (R): 2+, carotid (L): 2+, radial (R): 2+, radial (L): 2+ Abdomen: Present: Normal bowel sounds, soft, nontender, nondistended, no rebound tenderness, no hepatospenomegaly, no masses /Rectal: Present: Exam deferred Extremity: Present: normal range of motion, non-tender, normal inspection, no pedal edema, no calf tenderness, normal capillary refill Skin Exam: Present: normal color, warm/dry, no cyanosis Lymphatic: Present: no adenopathy Neurologic: Present: benefits representative II-XII nml as tested, no motor/sensory deficits, alert, normal mood/affect, oriented x 3 Appearance: Present: appropriate appearance, appropriate insight, neat, no memory impairment Eye contact: Present: cooperative, good eye contact, normal speech Thoughts: Present: normal thought pattern, no apparent hallucination Diagnostic Studies: Abnormal Lab Results 12/16/19 12/16/19 12/17/19 Range/Units 21:36 21:36 05:23 WBC 14.4 H (4.0-10.5) K/mm3 RBC 3.99 L (4.7-6.0) M/mm3 Hgb 12.7 L (13.5-18.0) gm/dL Hct 39.3 L (42.0-52.0) % MCH 31.8 H (27-31) pg MCHC (32-36) g/dl RDW 15.9 H (11.5-14.0) % Immature Gran % (Auto) 0.80 H (0.001-0.429) % Immature Gran # (Auto) 0.11 H (0.000-0.0310) K/mm3 Neutrophils % 86.3 H (42-75.0) % Lymphocytes % 5.1 L (20-51) % Neutrophils # 12.4 H (1.3-6.0) K/mm3 Lymphocytes # 0.73 L (1.5-3.5) k/mm3 Sodium 143 H (132-142) mmol/L Plasma Sodium 143 H (130-142) mmol/L Chloride (97-106) mmol/L Anion Gap 16.3 H (6.8-13.8) mmol/L BUN 38 H (6-23) mg/dL Creatinine 1.45 H (0.4-1.4) mg/dL Est GFR (Non-Af Amer) 50 L (60-130) mL/min BUN/Creatinine Ratio 26.2 H (9.0-21.6) Random Glucose 127 H (70-110) mg/dL Albumin 2.9 L (3.4-5.0) gm/dl Urine Protein 30 H (NEGATIVE) mg/dL Urine Blood 25 H (NEGATIVE) /ul Urine Nitrate Positive H (NEGATIVE) Ur Leukocyte Esterase 100 H (NEGATIVE) /ul Urine RBC >50 H (0-5) /hpf Urine WBC >50 H (0-5) /hpf Urine Bacteria 1+ H (NONE) 12/17/19 12/17/19 Range/Units 09:26 09:26 WBC 16.5 H (4.0-10.5) K/mm3 RBC 3.85 L (4.7-6.0) M/mm3 Hgb 12.0 L (13.5-18.0) gm/dL Hct 38.5 L (42.0-52.0) % MCH 31.2 H (27-31) pg MCHC 31.2 L (32-36) g/dl RDW 15.9 H (11.5-14.0) % Immature Gran % (Auto) 0.60 H (0.001-0.429) % Immature Gran # (Auto) 0.10 H (0.000-0.0310) K/mm3 Neutrophils % 89.1 H (42-75.0) % Lymphocytes % 4.2 L (20-51) % Neutrophils # 14.7 H (1.3-6.0) K/mm3 Lymphocytes # 0.70 L (1.5-3.5) k/mm3 Sodium 145 H (132-142) mmol/L Plasma Sodium 146 H (130-142) mmol/L Chloride 107 H (97-106) mmol/L Anion Gap (6.8-13.8) mmol/L BUN 35 H (6-23) mg/dL Creatinine 1.62 H (0.4-1.4) mg/dL Est GFR (Non-Af Amer) 44 L (60-130) mL/min BUN/Creatinine Ratio (9.0-21.6) Random Glucose 137 H (70-110) mg/dL Albumin 2.7 L (3.4-5.0) gm/dl Urine Protein (NEGATIVE) mg/dL Urine Blood (NEGATIVE) /ul Urine Nitrate (NEGATIVE) Ur Leukocyte Esterase (NEGATIVE) /ul Urine RBC (0-5) /hpf Urine WBC (0-5) /hpf Urine Bacteria (NONE) Laboratory Results WBC 16.5 K/mm3 (4.0-10.5) H 12/17/19 09:26 RBC 3.85 M/mm3 (4.7-6.0) L 12/17/19 09:26 Hgb 12.0 gm/dL (13.5-18.0) L 12/17/19 09:26 Hct 38.5 % (42.0-52.0) L 12/17/19 09:26 MCV 100.0 fl (78-100) 12/17/19 09:26 MCH 31.2 pg (27-31) H 12/17/19 09:26 MCHC 31.2 g/dl (32-36) L 12/17/19 09:26 RDW 15.9 % (11.5-14.0) H 12/17/19 09:26 Plt Count 193 K/mm3 (150-450) 12/17/19 09:26 MPV 8.2 fl (8-11.3) 12/17/19 09:26 Immature Gran % (Auto) 0.60 % (0.001-0.429) H 12/17/19 09:26 Immature Gran # (Auto) 0.10 K/mm3 (0.000-0.0310) H 12/17/19 09:26 Neutrophils % 89.1 % (42-75.0) H 12/17/19 09:26 Lymphocytes % 4.2 % (20-51) L 12/17/19 09:26 Monocytes % 5.1 % (0.0-9) 12/17/19 09:26 Eosinophils % 0.8 % (0.0-3.0) 12/17/19 09: Basophils % 0.2 % (0.0-1.0) 12/17/19 09:26 Nucleated RBC % 0.0 k/mm3 (0-1) 12/17/19 09:26 Neutrophils # 14.7 K/mm3 (1.3-6.0) H 12/17/19 09:26 Lymphocytes # 0.70 k/mm3 (1.5-3.5) L 12/17/19 09:26 Monocytes # 0.9 k/mm3 (0.0-1.0) 12/17/19 09:26 Eosinophils # 0.1 k/mm3 (0.0-0.7) 12/17/19 09:26 Absolute Basophils 0.0 k/mm3 (0.0-0.1) 12/17/19 09:26 Sodium 145 mmol/L (132-142) H 12/17/19 09:26 Plasma Sodium 146 mmol/L (130-142) H 12/17/19 09:26 Potassium 4.4 mmol/L (3.4-4.6) 12/17/19 09:26 Chloride 107 mmol/L (97-106) H 12/17/19 09:26 Carbon Dioxide 29.2 mmol/L (24-32.6) 12/17/19 09:26 Anion Gap 13.2 mmol/L (6.8-13.8) 12/17/19 09:26 BUN 35 mg/dL (6-23) H 12/17/19 09:26 Creatinine 1.62 mg/dL (0.4-1.4) H 12/17/19 09:26 Est GFR (Non-Af Amer) 44 mL/min (60-130) L 12/17/19 09:26 BUN/Creatinine Ratio 21.6 (9.0-21.6) 12/17/19 09:26 Random Glucose 137 mg/dL (70-110) H 12/17/19 09:26 Lactic Acid, Venous 1.3 mmol/L (0.4-2.0) 12/16/19 21:36 Calcium 8.3 mg/dL (7.9-10.9) 12/17/19 09:26 Calcium Adj for Albumin 9.0 mg/dL (8.4-10.2) 12/17/19 09:26 Total Bilirubin 0.6 mg/dL (0.0-1.1) 12/17/19 09:26 AST 17 U/L (0-48) 12/17/19 09:26 ALT 20 U/L (19-67) 12/17/19 09:26 Alkaline Phosphatase 67 U/L (50-170) 12/17/19 09:26 B-Natriuretic Peptide 421 pg/mL (5-650) 12/16/19 21:36 Total Protein 7.2 gm/dL (6.2-8.2) 12/17/19 09:26 Albumin 2.7 gm/dl (3.4-5.0) L 12/17/19 09:26 Urine Color Yellow 12/17/19 05:23 Urine Appearance Cloudy (CLEAR) 12/17/19 05:23 Urine pH 6.0 pH (5.0-7.0) 12/17/19 05:23 Ur Specific [place] 1.020 SP.GR. (1.005-1.030) 12/17/19 05:23 Urine Protein 30 mg/dL (NEGATIVE) H 12/17/19 05:23 Urine Glucose (UA) Negative mg/dL (NEGATIVE) 12/17/19 05:23 Urine Ketones 5 mg/dL (NEGATIVE) 12/17/19 05:23 Urine Blood 25 /ul (NEGATIVE) H 12/17/19 05:23 Urine Nitrate Positive (NEGATIVE) H 12/17/19 05:23 Urine Bilirubin Negative mg/dl (NEGATIVE) 12/17/19 05:23 Prot Sulfosalicylic Acd 1+ mg/dL (0) 12/17/19 05:23 Urine Urobilinogen Normal EU/dl (NORMAL) 12/17/19 05:23 Ur Leukocyte Esterase 100 /ul (NEGATIVE) H 12/17/19 05:23 Urine RBC >50 /hpf (0-5) H 12/17/19 05:23 Urine WBC >50 /hpf (0-5) H 12/17/19 05:23 Ur Epithelial Cells 0-5 /hpf (0-5) 12/17/19 05:23 Urine Bacteria 1+ (NONE) H 12/17/19 05:23 Urine Culture Comments Culture to follow 12/17/19 05:23 Influenza Type A Ag Negative (NEGATIVE) 12/16/19 21:26 Influenza Type B Ag Negative (NEGATIVE) 12/16/19 21:26 Group A Strep Rapid Negative (NEGATIVE) 12/16/19 21:26 Assessment/Plan - Narrative Narrative: He will get a second dose of Rocephin this evening. I repeated his CBC and his white count has gone up to 16,500 with about 90% neutrophils. Repeat lab again tomorrow. Anticipate that he will have to be converted to a regular admission. He was admitted to room 126 because he is on chemotherapy and having some coughing and shortness of breath. He otherwise feels well and does not have any symptoms of UTI even though the urine is very suggestive of that. I will speak with Dr. Godfrey today who is his oncologist and try to get more history from him. I put a call into him at about 10:00 this morning. - Assessment/Plan (1) Leukocytosis Problem: Acute Qualifiers: Leukocytosis type: leukemoid reaction Qualified Code(s): D72.823 - Leukemoid reaction (2) COPD with acute exacerbation Problem: Acute (3) Urinary tract infection Problem: Acute Qualifiers: Urinary tract infection type: acute cystitis (4) Metastatic cancer to bone Problem: Chronic
[2019-12-17] MEDS: ALBUTEROL SULFATE/IPRATROPIUM 3 ML NEBU IH SCH (14:00)
[2019-12-17] MEDS ORDERED: BUDESONIDE 0.5 MG/2 ML VIAL.NEB IH SCH (19:00)
[2019-12-17] MEDS ORDERED: FORMOTEROL FUMARATE 20 MCG/2 ML VIAL IH SCH (19:00)
[2019-12-17] MEDS ORDERED: GLYCOPYRROLATE IH SCH (21:00)
[2019-12-17] MEDS ORDERED: CEFEPIME HCL 1 GM in DEXTROSE 5 % IN WATER 100 ML IV SCH ×2 (21:00)
[2019-12-17] MEDS ORDERED: FORMOTEROL FUM IH SCH (21:00)
[2019-12-17] MEDS ORDERED: [UNRECOGNIZED DRUG - OTHER] IH SCH (21:00)
[2019-12-17] MEDS: APIXABAN 2.5 MG TABLET PO SCH (21:51)
[2019-12-17] MEDS: FLUTICASONE PROPION/SALMETEROL 14 PUFF DISK.W.DEV IH SCH (21:51)
[2019-12-18] MEDS: ALBUTEROL SULFATE/IPRATROPIUM 3 ML NEBU IH SCH ×3 (07:04→14:11)
[2019-12-18] MEDS ORDERED: TIOTROPIUM BROMIDE 5 CAP INHALER IH SCH (09:00)
[2019-12-18] MEDS ORDERED: CALCIUM CARBONATE 500 MG TAB.CHEW PO SCH (09:00)
[2019-12-18 09:05] LABS: Hematocrit 37.8 % (42.0-52.0); Hemoglobin 11.9 gm/dL (13.5-18.0); Mean Cell Volume 100.3 fl (78-100); Mean Corpuscular Hemoglobin 31.6 pg (27-31); Mean Corpuscular Hgb Conc 31.5 g/dl (32-36); Mean Platelet Volume 8.8 fl (8-11.3); Neutrophil # 9.7 K/mm3 (1.3-6.0); Neutrophil % 85.2 % (42-75.0); Platelet Count 208 K/mm3 (150-450); Red Blood Count 3.77 M/mm3 (4.7-6.0); Red Cell Distribution Width 15.5 % (11.5-14.0); White Blood Count 11.3 K/mm3 (4.0-10.5)
[2019-12-18 09:08] LABS: Albumin * 2.5 gm/dl (3.4-5.0); Anion Gap 13.6 mmol/L (6.8-13.8); BUN/Creatinine Ratio 17.8 (9.0-21.6); Bilirubin, Total 0.5 mg/dL (0.0-1.1); Ca. Corrected For Albumin 9.1 mg/dL (8.4-10.2); Calcium * 8.2 mg/dL (7.9-10.9); Carbon Dioxide 28.3 mmol/L (24-32.6); Potassium 3.9 mmol/L (3.4-4.6); Total Protein 7.5 gm/dL (6.2-8.2)
[2019-12-18] MEDS: APIXABAN 2.5 MG TABLET PO SCH (09:52)
[2019-12-18] MEDS: FLUTICASONE PROPION/SALMETEROL 14 PUFF DISK.W.DEV IH SCH (09:52)
[2019-12-18] MEDS: GUAIFENESIN PO SCH (10:05)
[2019-12-18] MEDS: DEXTROMETHORPHAN PO SCH (10:05)
--- NOTE | 2019-12-18 13:46 | DS ---
(1) Leukocytosis Problem: Acute Qualifiers: Leukocytosis type: leukemoid reaction Qualified Code(s): D72.823 - Leukemoid reaction (2) COPD with acute exacerbation Problem: Acute (3) Urinary tract infection Problem: Acute Qualifiers: Urinary tract infection type: acute cystitis Hematuria presence: without hematuria Qualified Code(s): N30.00 - Acute cystitis without hematuria (4) Metastatic cancer to bone Problem: Chronic Date of Discharge:: 12/18/19 Hospital Course: Matt Stack is an 84-year-old male who presented with shortness of breath and marked dyspnea on exertion. After being evaluated in the ER he was admitted to an observation status. He met screening criteria for code at 19 which was ordered in the emergency room and reported out this morning as negative. However, on admission he was placed in the reverse isolation room 126 until it was proven. He has metastatic cancer which involved kidney cancer that was surgically removed, but metastasis to bone. Reportedly he also has colon cancer. He has been receiving chemotherapy but it seems to cause him marked increase in shortness of breath. He had been on oral prednisone and then tapered off of that. 4 days after stopping it he started having more respiratory difficulty. Yesterday he continued to have a lot of dyspnea with minor exertion but it is better today. He is walking on room air and his saturations are well above 90% and in fact was 97% this morning. His admitting white count was elevated at 12,500 and then yesterday was 14,500 and today has dropped to 11,700. The urine culture shows gram-negative lesa and its identi fication and sensitivity will be available tomorrow. He has had Pseudomonas infections a couple of times in the past and so his antibiotic was changed from ceftriaxone to cefepime yesterday. He now feels he can go home and be safe and not be in distress there. Procedures Performed: none Results and Findings: Pending Mircobiology Results 12/17/19 05:23 Urine,Voided Urine Culture - Preliminary Gram Negative Bacilli 12/16/19 21:35 Blood Blood Culture - Preliminary NO GROWTH 24 HOURS 12/16/19 21:10 Blood Blood Culture - Preliminary NO GROWTH 24 HOURS Lab Pending Results 12/16/19 21:26: Influenza Type A Ag Negative, Influenza Type B Ag Negative 12/16/19 21:26: Group A Strep Rapid Negative 12/16/19 21:35: SARS-CoV-2 (PCR) Not detected 12/16/19 21:36: WBC 14.4 H, RBC 3.99 L, Hgb 12.7 L, Hct 39.3 L, MCV 98.5, MCH 31.8 H, MCHC 32.3, RDW 15.9 H, Plt Count 226, MPV 8.5, Immature Gran % (Auto) 0.80 H, Immature Gran # (Auto) 0.11 H, Neutrophils % 86.3 H, Lymphocytes % 5.1 L, Monocytes % 6.6, Eosinophils % 0.9, Basophils % 0.3, Nucleated RBC % 0.0, Neutrophils # 12.4 H, Lymphocytes # 0.73 L, Monocytes # 1.0, Eosinophils # 0.1, Absolute Basophils 0.0 12/16/19 21:36: Sodium 143 H, Plasma Sodium 143 H, Potassium 4.5, Chloride 106, Carbon Dioxide 25.2, Anion Gap 16.3 H, BUN 38 H, Creatinine 1.45 H, Est GFR (Non-Af Amer) 50 L, BUN/Creatinine Ratio 26.2 H, Random Glucose 127 H, Calcium 8.8, Calcium Adj for Albumin 9.4, Total Bilirubin 0.7, AST 16, ALT 20, Alkaline Phosphatase 57, B-Natriuretic Peptide 421, Total Protein 7.2, Albumin 2.9 L 12/16/19 21:36: Lactic Acid, Venous 1.3 12/17/19 05:23: Urine Color Yellow, Urine Appearance Cloudy, Urine pH 6.0, Ur Specific [place] 1.020, Urine Protein 30 H, Urine Glucose (UA) Negative, Urine Ketones 5, Urine Blood 25 H, Urine Nitrate Positive H, Urine Bilirubin Negative, Prot Sulfosalicylic Acd 1+, Urine Urobilinogen Normal, Ur Leukocyte Esterase 100 H, Urine RBC >50 H, Urine WBC >50 H, Ur Epithelial Cells 0-5, Urine Bacteria 1+ H, Urine Culture Comments Culture to follow 12/17/19 09:26: WBC 16.5 H, RBC 3.85 L, Hgb 12.0 L, Hct 38.5 L, MCV 100.0, MCH 31.2 H, MCHC 31.2 L, RDW 15.9 H, Plt Count 193, MPV 8.2, Immature Gran % (Auto) 0.60 H, Immature Gran # (Auto) 0.10 H, Neutrophils % 89.1 H, Lymphocytes % 4.2 L, Monocytes % 5.1, Eosinophils % 0.8, Basophils % 0.2, Nucleated RBC % 0.0, Neutrophils # 14.7 H, Lymphocytes # 0.70 L, Monocytes # 0.9, Eosinophils # 0.1, Absolute Basophils 0.0 12/17/19 09:26: Sodium 145 H, Plasma Sodium 146 H, Potassium 4.4, Chloride 107 H, Carbon Dioxide 29.2, Anion Gap 13.2, BUN 35 H, Creatinine 1.62 H, Est GFR (Non-Af Amer) 44 L, BUN/Creatinine Ratio 21.6, Random Glucose 137 H, Calcium 8.3, Calcium Adj for Albumin 9.0, Total Bilirubin 0.6, AST 17, ALT 20, Alkaline Phosphatase 67, Total Protein 7.2, Albumin 2.7 L 12/18/19 08:51: WBC 11.3 H D, RBC 3.77 L, Hgb 11.9 L, Hct 37.8 L, MCV 100.3 H, MCH 31.6 H, MCHC 31.5 L, RDW 15.5 H, Plt Count 208, MPV 8.8, Immature Gran % (Auto) 1.10 H, Immature Gran # (Auto) 0.12 H, Neutrophils % 85.2 H, Lymphocytes % 5.9 L, Monocytes % 6.4, Eosinophils % 1.1, Basophils % 0.3, Nucleated RBC % 0.0, Neutrophils # 9.7 H, Lymphocytes # 0.67 L, Monocytes # 0.7, Eosinophils # 0.1, Absolute Basophils 0.0 12/18/19 08:51: Sodium 144 H, Plasma Sodium 144 H, Potassium 3.9, Chloride 106, Carbon Dioxide 28.3, Anion Gap 13.6, BUN 29 H, Creatinine 1.63 H, Est GFR (Non- Af Amer) 43 L, BUN/Creatinine Ratio 17.8, Random Glucose 127 H, Calcium 8.2, Calcium Adj for Albumin 9.1, Total Bilirubin 0.5, AST 17, ALT 20, Alkaline Phosp hatase 73, Total Protein 7.5, Albumin 2.5 L Discharge Location: Home Disposition: Home self-care Condition: Fair Face to Face Encounter completed per [facility] Guidelines: No Discharge Activity: Activity as tolerated Discharge Diet: General/regular food Additional Patient Instructions (free text): Dr Preeti Arzola follow up appointment on December 24Monday at 10:00. I will notify Dr. Alex Johnson of his admission in case he wants to do anything else. Matt has had Dr. Alex Johnson do a therapeutic bronchoscopy were a lot of mucus was aspirated from the lungs. I am wondering if that might need to be done again. Of also try to notify Dr. Godfrey (medical oncologist) and left a voicemail on her phone but she has not returned my call to date. Prescriptions (Any new or edited meds): Cefdinir 300 mg PO BID #24 cap Transmission Status: Pending to [place], [place] Complete Home Medications List: Complete Home Medication List: ipratropium 0.5 mg-albuterol 3 mg (2.5 mg base)/3 mL nebulization soln 3 ml IH QID #180 ml 05/29/18 glycopyrrolate 9 mcg-formoterol 4.8 mcg HFA aerosol inhaler 2 puff IH BID 09/27/18 fluorouracil 5 % topical cream 1 applic TP BID PRN 02/25/19 Calcium Carbonate [Calcium] 600 mg PO DAILY 05/09/19 albuterol sulfate 2.5 mg IH Q6H PRN ml 09/06/19 benzonatate 100 mg capsule 100 mg PO BID-TID PRN 09/06/19 budesonide 0.5 mg/2 mL suspension for nebulization 2 ml IH BID 09/06/19 cetirizine 10 mg tablet 5 mg PO DAILY PRN 09/06/19 dextromethorphan-guaifenesin 30 mg-600 mg tablet extended [id number] hr 1 tab PO Q12H 09/06/19 Apixaban [Eliquis] 2.5 mg PO BID 10/18/19 Acetaminophen [Tylenol] 650 mg PO Q6H PRN tablet 12/18/19 Cefdinir 300 mg PO BID #24 cap 12/18/19 Tiotropium [place] [Spiriva] 1 cap INHALATION DAILY #1 inhaler 12/18/19
[2019-12-18 16:15] VITALS: BP 125/68
== END 2019-12-18 15:45 | disposition home or self-care (01) ==
LOC: ER 20:52 → MS 20:52
PROVIDERS: ADMIT Family Medicine; ATTEND Family Medicine
DX: C67.9 Malignant neoplasm of bladder, unspecified; D72.829 Elevated white blood cell count, unspecified; B96.5 Pseudomonas (aeruginosa) (mallei) (pseudomallei) as the cause of diseases classified elsewhere; N30.00 Acute cystitis without hematuria; Z87.891 Personal history of nicotine dependence; C79.51 Secondary malignant neoplasm of bone; I47.1 Supraventricular tachycardia; J44.1 Chronic obstructive pulmonary disease with (acute) exacerbation
CPT/HCPCS: 36415; 71010; 71045; 80053; 81001; 83519; 83605; 83880; 85025; 87040; 87077; 87081; 87086; 87186; 87400; 87430; 87449; 93005; 94640; 94760; 96361; 96365; 96367; 99285; C9803; G0378

== ENCOUNTER 2020-10-25 09:44 | Observation (INO) ==
[2020-10-25] MEDS ORDERED: NORMAL SALINE 1,000 ML IV ONE ×4 (09:52→12:25)
[2020-10-25 10:16] LABS: Hematocrit 29.5 % (42.0-52.0); Hemoglobin 8.9 gm/dL (13.5-18.0); Mean Corpuscular Hemoglobin 29.6 pg (27-31); Mean Corpuscular Hgb Conc 30.2 g/dl (32-36); Mean Platelet Volume 9.4 fl (8-11.3); Platelet Count 213 K/mm3 (150-450); Red Blood Count 3.01 M/mm3 (4.7-6.0); Red Cell Distribution Width 14.8 % (11.5-14.0); White Blood Count 6.8 K/mm3 (4.0-10.5)
[2020-10-25 10:24] LABS: Total Cells Counted 100
[2020-10-25 10:29] LABS: Albumin * 2.3 gm/dl (3.4-5.0); Anion Gap 13.5 mmol/L (6.8-13.8); BUN/Creatinine Ratio 22.7 (9.0-21.6); Bilirubin, Total 0.6 mg/dL (0.0-1.1); Ca. Corrected For Albumin 10.7 mg/dL (8.4-10.2); Calcium * 9.7 mg/dL (7.9-10.9); Potassium 4.5 mmol/L (3.4-4.6); Total Protein 7.3 gm/dL (6.2-8.2)
--- NOTE | 2020-10-25 10:29 | ERNOTE ---
Medical Problem HPI - Narrative Date of Service: 10/25/20 - General Time Seen by Provider: 10/25/20 09:50 Source: patient, EMS, [facility] records Exam Limitations: clinical condition - Immun/Allergies/Home Medications Immunizations: IMMUNIZATION HX Immunizations Up to Date Yes History of Influenza Vaccine Yes Hx Pneumococcal Vaccination Yes Allergies/Adverse Reactions: Allergies No Known Allergies Allergy (Verified 09/27/20 15:29) Home Medications: HOME MEDICATIONS Calcium Carbonate [Calcium] 600 mg PO DAILY 05/09/19 [Last Taken Unknown] albuterol sulfate 2.5 mg IH Q6H PRN ml 09/06/19 [Last Taken Unknown] Acetaminophen [Tylenol] 650 mg PO Q6H PRN tab 12/18/19 [Last Taken Unknown] albuterol sulfate 90 mcg/actuation aerosol inhaler 2 inh IH Q4H PRN 10/12/20 [Last Taken Unknown] carvedilol 25 mg tablet 25 mg PO BID 10/12/20 [Last Taken Unknown] loratadine 10 mg tablet 10 mg PO DAILY 10/12/20 [Last Taken Unknown] nifedipine 30 mg tablet,extended release 30 mg PO DAILY 10/12/20 [Last Taken U nknown] Fluticasone Propionate [24 Hour Allergy Relief] PRN 10/25/20 [Last Taken Unknown] Guaifenesin/Pseudoephedrne HCl [Mucinex D ER 600-60 mg Tablet] 1 ea PO BID PRN 10/25/20 [Last Taken Unknown] Mirtazapine [Remeron] 15 mg PO HS 10/25/20 [Last Taken Unknown] Tiotropium Br/Olodaterol HCl [Stiolto Respimat Inhal [place]] 4 gm IH DAILY 10/25/20 [Last Taken 10/25/20] clonazePAM [Klonopin] 0.5 mg PO Q8H PRN 10/25/20 [Last Taken Unknown] - History of Present History Narrative: This patient is an 85-year-old gentleman who was sent from the [place] for feve r, hypoxia, and hypotension. His temperature was reportedly up to 100. He normally is on up to 3 L of oxygen at the home. He was reported to be in the 80s on 3 L. His blood pressure was in the 80s or 90s. The patient is not able to give any useful history. Review of Systems - Narrative Narrative: The patient is not able to give any answers for the review of systems. 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 History of benign bladder tumor Onset Date: Unknown History of renal calculi Onset Date: Unknown History of squamous cell carcinoma Onset Date: ~2011 Surgical History: Surgical History (Last Reviewed 10/25/20 @ 10:26 by Iain Lim MD) History of back surgery Onset Date: Unknown History of hip surgery Onset Date: ~02/09/19 Rt femur ENT AP and Lat INCL AP and Lat hip History of nephroureterectomy Onset Date: 03/16/18 left kidney-robotic surgical pathology high-grade urothelial carcinoma History of prostatectomy Onset Date: Unknown History of vasectomy Onset Date: Unknown Family History: Family History (Last Reviewed 10/25/20 @ 10:26 by Iain Lim MD) Father CVA (cerebral vascular accident) CAD (coronary artery disease) Mother Cancer Social History: (Last Reviewed 10/25/20 @ 10:26 by Iain Lim MD) Social History: Marital status: Service: Yes branch: [employer] status: retired Tobacco: Smoking Status: Former smoker Alcohol: alcohol intake: former Substance Use: substance use type: does not use Dietary Habits: caffeine: Yes Physical Exam - Physical Exam General Appearance: Present: alert, mild distress - He is tachypneic with audible breathing sounds., cachetic Head Exam: Present: normal inspection, other - There are lesions and erosions consistent with skin cancers on his scalp Eye Exam: Normal inspection: bilateral Ears, Nose, Throat: Present: other - His tongue is dry and covered with debris. Neck: Present: normal inspection, supple Respiratory: Present: other - He is tachypneic with rhonchi present. Cardiovascular/Chest: Present: regular rate, rhythm, no murmur - Difficulty here due to the breathing sounds. Gastrointestinal/Abdominal: Present: normal bowel sounds, nontender - He has no pain response with palpation., nondistended, soft, no organomegaly Extremity Exam: Present: normal inspection, no edema Neurological Exam: Present: alert, other - He is not compliant with the neurologic exam. Skin Exam: Present: normal color, cool/dry - It is 0 degrees out at this time. Progress - Results and Orders Patient's Lab Results:: I have reviewed the patient's lab results. Results and Orders: Laboratory Tests 10/25/20 10/25/20 10/25/20 10:00 10:00 10:00 WBC 6.8 RBC 3.01 L Hgb 8.9 L Hct 29.5 L MCV 98.0 MCH 29.6 MCHC 30.2 L RDW 14.8 H Plt Count 213 MPV 9.4 Neutrophils % (Manual) 41 L Band Neuts % (Manual) 35 H Lymphocytes % (Manual) 13 L Monocytes % (Manual) 11 H Neutrophils # (Manual) 2.8 Lymphocytes # (Manual) 0.9 L Monocytes # (Manual) 0.7 Platelet Estimate Normal RBC Morphology Normal Sodium 147 H Plasma Sodium 148 H Potassium 4.5 D Chloride 109 H Carbon Dioxide 29.0 Anion Gap 13.5 BUN 88 H D Creatinine 3.88 H D Est GFR (Non-Af Amer) 16 L D BUN/Creatinine Ratio 22.7 H Random Glucose 140 H Lactic Acid, Venous 2.2 H* Calcium 9.7 Calcium Adj for Albumin 10.7 H Total Bilirubin 0.6 AST 55 H ALT 21 Alkaline Phosphatase 67 Total Protein 7.3 Albumin 2.3 L Urine Color Urine Appearance Urine pH Ur Specific [place] Urine Protein Urine Glucose (UA) Urine Ketones Urine Blood Urine Nitrate Urine Bilirubin Urine Urobilinogen Ur Leukocyte Esterase Urine RBC Urine WBC Ur Epithelial Cells Urine Bacteria Urine Culture Comments 10/25/20 10:23 WBC RBC Hgb Hct MCV MCH MCHC RDW Plt Count MPV Neutrophils % (Manual) Band Neuts % (Manual) Lymphocytes % (Manual) Monocytes % (Manual) Neutrophils # (Manual) Lymphocytes # (Manual) Monocytes # (Manual) Platelet Estimate RBC Morphology Sodium Plasma Sodium Potassium Chloride Carbon Dioxide Anion Gap BUN Creatinine Est GFR (Non-Af Amer) BUN/Creatinine Ratio Random Glucose Lactic Acid, Venous Calcium Calcium Adj for Albumin Total Bilirubin AST ALT Alkaline Phosphatase Total Protein Albumin Urine Color Yellow Urine Appearance Cloudy Urine pH 6.0 Ur Specific [place] 1.015 Urine Protein 30 H Urine Glucose (UA) Negative Urine Ketones Negative Urine Blood 5 H Urine Nitrate Negative Urine Bilirubin Negative Urine Urobilinogen Normal Ur Leukocyte Esterase 500 H Urine RBC 0-5 Urine WBC >50 H Ur Epithelial Cells 0-5 Urine Bacteria 3+ H Urine Culture Comments Culture to follow - Vital Signs Patient's Vital Signs:: I have reviewed the patient's vital signs. Vital Signs: Vital Signs 10/25/20 10:00 Temperature 36.6 C Pulse Rate 86 Respiratory Rate 33 H Blood Pressure 70/39 L O2 Sat by Pulse Oximetry 86 L - EKG EKG #1 EKG read: Interp. by me EKG Comments: Sinus rhythm Rate 86 Normal axis Possible left atrial enlargement Nonspecific ST and T wave changes No old EKG available for comparison - X-Ray X-Ray #1 X-Ray: chest Interpretation: Reviewed by me X-ray Comments: Chest Single View *~ Exam Date: 10/25/2020 10:28 Ordering Physician: Iain Lim MD History: Rhonchi. Fever. Technique: Single AP view of the chest obtained. Two images utilized. Comparison: 09/29/2020 Findings: There is changes of underlying emphysema and fibrosis. There is some patchy consolidation in the left mid to lower lung field. No effusions identified. Heart size and vascularity appear within normal limits. IMPRESSION: LEFT MIDLUNG INFILTRATE. CHRONIC CHANGES OF EMPHYSEMA AND FIBROSIS. Electronically signed by Darien Wooten M.D.. Departure Clinical Impression: Dehydration, YULI (acute kidney injury) - Departure Disposition: Still a patient Condition:
[2020-10-25 10:37] LABS: Band 35 % (0-2.0); Lymphocyte 13 % (20-51); Monocyte 11 % (0-9); Neutrophil 41 % (42-75); Neutrophil # 2.8 K/mm3 (1.3-6.0); Platelet Estimate Normal (NORMAL)
[2020-10-25 10:38] LABS: RBC Morphology Normal (NORMAL)
[2020-10-25 10:46] LABS: Urine Appearance Cloudy (CLEAR); Urine Bilirubin Negative (NEGATIVE); Urine Blood 5 /ul (NEGATIVE); Urine Color Yellow; Urine Ketone Negative (NEGATIVE); Urine Specific Gravity 1.015 SP.GR. (1.005-1.030)
[2020-10-25 10:47] LABS: Urine Nitrite Negative (NEGATIVE); Urine Protein 30 mg/dL (NEGATIVE); Urine Urobilinogen Normal (NORMAL); Urine WBC >50 /hpf (0-5)
[2020-10-25 10:49] LABS: Urine Bacteria 3+; Urine RBC 0-5 /hpf (0-5)
[2020-10-25] MEDS ORDERED: CEFEPIME HCL 1 GM/100 ML BAG IV ONE ×2 (11:04→11:05)
[2020-10-25] MEDS ORDERED: NON-FORMULARY 1 DOSE DOSE IV SCH (11:15)
[2020-10-25] MEDS ORDERED: CEFEPIME HCL 2 GM in DEXTROSE 5 % IN WATER 100 ML IV ONE ×2 (11:30)
[2020-10-25 13:06] VITALS: BP 71/40
[2020-10-25] MEDS ORDERED: MORPHINE SULFATE 2 MG/ML DISP.SYRIN IV PRN (13:45)
[2020-10-25] MEDS ORDERED: ACETAMINOPHEN 325 MG TABLET PO PRN (13:45)
[2020-10-25] MEDS ORDERED: LORazepam 2 MG/ML DISP.SYRIN IV PRN (13:45)
[2020-10-25] MEDS ORDERED: ONDANSETRON HCL/PF 2 MG/ML VIAL IV PRN (13:45)
[2020-10-25] MEDS ORDERED: ATROPINE SULFATE 50 DROP BTL SL PRN (13:45)
--- NOTE | 2020-10-25 13:56 | HP ---
Chief Complaint - Chief Complaint Date of Service: 10/25/20 Time of Service: 13:47 Chief Complaint: Patient is nonverbal History of Present Illness: 85-year-old male with past medical history of bladder cancer with mets, and a recent intraparenchymal brain bleed with left hemineglect was brought to the ER from the [facility] after the patient became unresponsive hypotensive and presenting fevers. Patient was recently admitted for a UTI pneumonia and dehydration a month ago will have to be transferred to the [place] for a significant intracranial bleed. He was recently on Eliquis as ordered by his oncologist for protection against VTE's, and is believed that the Eliquis played a role in the brain bleed. He was subsequently discharged from the [place] and was ordered to return in 6 weeks for repeat MRI. The patient was discharged to the [facility] where he has been until now. The patient arrived to our facility is extremely dehydrated unresponsive and appears to be actively dying. His condition was discussed with his who is his POA and she agreed to keep the patient on comfort measures and did not want any heroics or other aggressive measures. Therefore we will just place the [facility] or[facility] care protocol to make the patient has comfortable as possible. 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 History of benign bladder tumor Onset Date: Unknown History of renal calculi Onset Date: Unknown History of squamous cell carcinoma Onset Date: ~2011 Surgical History: Surgical History (Last Reviewed 10/25/20 @ 10:26 by Iain Lim MD) History of back surgery Onset Date: Unknown History of hip surgery Onset Date: ~02/09/19 Rt femur ENT AP and Lat INCL AP and Lat hip History of nephroureterectomy Onset Date: 03/16/18 left kidney-robotic surgical pathology high-grade urothelial carcinoma History of prostatectomy Onset Date: Unknown History of vasectomy Onset Date: Unknown Family History: Family History (Last Reviewed 10/25/20 @ 10:26 by Iain Lim MD) Father CVA (cerebral vascular accident) CAD (coronary artery disease) Mother Cancer Social History: (Last Reviewed 10/25/20 @ 10:26 by Iain Lim MD) Social History: Marital status: Service: Yes branch: [employer] status: retired Tobacco: Smoking Status: Former smoker Alcohol: alcohol intake: former Substance Use: substance use type: does not use Dietary Habits: caffeine: Yes Peds Patient Hx - Developmental: No Pertinent Hx Peds Patient Hx - Medical: No Pertinent Hx Peds Patient Hx - Cardiac/Respiratory: No Pertinent Hx Peds Patient Hx - Surgical: No Surgical History Patient History - Cancer: No Hx of Cancer Review Of Systems (GEN) - Review of Systems Generalized/Overall Review: Present: Weakness, Fever EENTM: Present: No Symptoms Reported Respiratory: Present: No Symptoms Reported Cardiac: Present: No Symptoms Reported Abdominal: Present: Other - Loss of appetite Genitourinary: Present: No Symptoms Reported Neurological: Present: Pre-existing Deficit Skin: Present: No Symptoms Reported Endocrine: Present: No Symptoms Reported Immunizations: IMMUNIZATION HX Immunizations Up to Date Yes History of Influenza Vaccine Yes Hx Pneumococcal Vaccination Yes Allergies/Adverse Reactions: Allergies Allergy/AdvReac Type Severity Reaction Status Date / Time No Known Allergies Allergy Verified 09/27/20 15:29 Home Medications: HOME MEDICATIONS Calcium Carbonate [Calcium] 600 mg PO DAILY 05/09/19 [Last Taken Unknown] albuterol sulfate 2.5 mg IH Q6H PRN ml 09/06/19 [Last Taken Unknown] Acetaminophen [Tylenol] 650 mg PO Q6H PRN tab 12/18/19 [Last Taken Unknown] albuterol sulfate 90 mcg/actuation aerosol inhaler 2 inh IH Q4H PRN 10/12/20 [Last Taken Unknown] carvedilol 25 mg tablet 25 mg PO BID 10/12/20 [Last Taken Unknown] loratadine 10 mg tablet 10 mg PO DAILY 10/12/20 [Last Taken Unknown] nifedipine 30 mg tablet,extended release 30 mg PO DAILY 10/12/20 [Last Taken Unknown] Fluticasone Propionate [24 Hour Allergy Relief] PRN 10/25/20 [Last Taken Unknown] Guaifenesin/Pseudoephedrne HCl [Mucinex D ER 600-60 mg Tablet] 1 ea PO BID PRN 10/25/20 [Last Taken Unknown] Mirtazapine [Remeron] 15 mg PO HS 10/25/20 [Last Taken Unknown] Tiotropium Br/Olodaterol HCl [Stiolto Respimat Inhal [place]] 4 gm IH DAILY 10/25/20 [Last Taken 10/25/20] clonazePAM [Klonopin] 0.5 mg PO Q8H PRN 10/25/20 [Last Taken Unknown] Exam - Exam Vital Signs: Vital Signs - Last Taken Temp 36.0 C 10/25/20 12:58 Pulse 80 10/25/20 12:58 Resp 24 H 10/25/20 12:58 BP 71/40 L 10/25/20 12:58 Pulse Ox 93 10/25/20 12:58 Constitutional: Present: Severe distress, Obtunded, Elderly Neck: Present: non-tender, supple, normal inspection, trachea midline Back Exam: Present: normal inspection Respiratory: Present: respiratory distress, crackles, rales Cardiovascular/Chest: Present: normal peripheral pulses, regular rate, rhythm, friction rub Abdomen: Present: hypoactive /Rectal: Present: Exam deferred Skin Exam: Present: normal color, cool/dry Lymphatic: Present: no adenopathy Neurologic: Present: abnormal device test engineer [id number] Appearance: Present: impaired insight Diagnostic Studies: Abnormal Lab Results 10/25/20 10/25/20 10/25/20 Range/Units 10:00 10:00 10:00 RBC 3.01 L (4.7-6.0) M/mm3 Hgb 8.9 L (13.5-18.0) gm/dL Hct 29.5 L (42.0-52.0) % MCHC 30.2 L (32-36) g/dl RDW 14.8 H (11.5-14.0) % Neutrophils % (Manual) 41 L (42-75) % Band Neuts % (Manual) 35 H (0-2.0) % Lymphocytes % (Manual) 13 L (20-51) % Monocytes % (Manual) 11 H (0-9) % Lymphocytes # (Manual) 0.9 L (1.5-3.5) k/mm3 Sodium 147 H (132-142) mmol/L Plasma Sodium 148 H (130-142) mmol/L Chloride 109 H (97-106) mmol/L BUN 88 H D (6-23) mg/dL Creatinine 3.88 H D (0.4-1.4) mg/dL Est GFR (Non-Af Amer) 16 L D (60-130) mL/min BUN/Creatinine Ratio 22.7 H (9.0-21.6) Random Glucose 140 H (70-110) mg/dL Lactic Acid, Venous 2.2 H* (0.4-2.0) mmol/L Calcium Adj for Albumin 10.7 H (8.4-10.2) mg/dL AST 55 H (0-48) U/L Albumin 2.3 L (3.4-5.0) gm/dl Urine Protein (NEGATIVE) mg/dL Urine Blood (NEGATIVE) /ul Ur Leukocyte Esterase (NEGATIVE) /ul Urine WBC (0-5) /hpf Urine Bacteria (NONE) 10/25/20 Range/Units 10:23 RBC (4.7-6.0) M/mm3 Hgb (13.5-18.0) gm/dL Hct (42.0-52.0) % MCHC (32-36) g/dl RDW (11.5-14.0) % Neutrophils % (Manual) (42-75) % Band Neuts % (Manual) (0-2.0) % Lymphocytes % (Manual) (20-51) % Monocytes % (Manual) (0-9) % Lymphocytes # (Manual) (1.5-3.5) k/mm3 Sodium (132-142) mmol/L Plasma Sodium (130-142) mmol/L Chloride (97-106) mmol/L BUN (6-23) mg/dL Creatinine (0.4-1.4) mg/dL Est GFR (Non-Af Amer) (60-130) mL/min BUN/Creatinine Ratio (9.0-21.6) Random Glucose (70-110) mg/dL Lactic Acid, Venous (0.4-2.0) mmol/L Calcium Adj for Albumin (8.4-10.2) mg/dL AST (0-48) U/L Albumin (3.4-5.0) gm/dl Urine Protein 30 H (NEGATIVE) mg/dL Urine Blood 5 H (NEGATIVE) /ul Ur Leukocyte Esterase 500 H (NEGATIVE) /ul Urine WBC >50 H (0-5) /hpf Urine Bacteria 3+ H (NONE) Laboratory Results WBC 6.8 K/mm3 (4.0-10.5) 10/25/20 10:00 RBC 3.01 M/mm3 (4.7-6.0) L 10/25/20 10:00 Hgb 8.9 gm/dL (13.5-18.0) L 10/25/20 10:00 Hct 29.5 % (42.0-52.0) L 10/25/20 10:00 MCV 98.0 fl (78-100) 10/25/20 10:00 MCH 29.6 pg (27-31) 10/25/20 10:00 MCHC 30.2 g/dl (32-36) L 10/25/20 10:00 RDW 14.8 % (11.5-14.0) H 10/25/20 10:00 Plt Count 213 K/mm3 (150-450) 10/25/20 10:00 MPV 9.4 fl (8-11.3) 10/25/20 10:00 Neutrophils % (Manual) 41 % (42-75) L 10/25/20 10:00 Band Neuts % (Manual) 35 % (0-2.0) H 10/25/20 10:00 Lymphocytes % (Manual) 13 % (20-51) L 10/25/20 10:00 Monocytes % (Manual) 11 % (0-9) H 10/25/20 10:00 Neutrophils # (Manual) 2.8 K/mm3 (1.3-6.0) 10/25/20 10:00 Lymphocytes # (Manual) 0.9 k/mm3 (1.5-3.5) L 10/25/20 10:00 Monocytes # (Manual) 0.7 k/mm3 (0.0-1.0) 10/25/20 10:00 Platelet Estimate Normal (NORMAL) 10/25/20 10:00 RBC Morphology Normal (NORMAL) 10/25/20 10:00 Sodium 147 mmol/L (132-142) H 10/25/20 10:00 Plasma Sodium 148 mmol/L (130-142) H 10/25/20 10:00 Potassium 4.5 mmol/L (3.4-4.6) D 10/25/20 10:00 Chloride 109 mmol/L (97-106) H 10/25/20 10:00 Carbon Dioxide 29.0 mmol/L (24-32.6) 10/25/20 10:00 Anion Gap 13.5 mmol/L (6.8-13.8) 10/25/20 10:00 BUN 88 mg/dL (6-23) H D 10/25/20 10:00 Creatinine 3.88 mg/dL (0.4-1.4) H D 10/25/20 10:00 Est GFR (Non-Af Amer) 16 mL/min (60-130) L D 10/25/20 10:00 BUN/Creatinine Ratio 22.7 (9.0-21.6) H 10/25/20 10:00 Random Glucose 140 mg/dL (70-110) H 10/25/20 10:00 Lactic Acid, Venous 1.5 mmol/L (0.4-2.0) 10/25/20 13:02 Calcium 9.7 mg/dL (7.9-10.9) 10/25/20 10:00 Calcium Adj for Albumin 10.7 mg/dL (8.4-10.2) H 10/25/20 10:00 Total Bilirubin 0.6 mg/dL (0.0-1.1) 10/25/20 10:00 AST 55 U/L (0-48) H 10/25/20 10:00 ALT 21 U/L (19-67) 10/25/20 10:00 Alkaline Phosphatase 67 U/L (50-170) 10/25/20 10:00 Total Protein 7.3 gm/dL (6.2-8.2) 10/25/20 10:00 Albumin 2.3 gm/dl (3.4-5.0) L 10/25/20 10:00 Urine Color Yellow 10/25/20 10:23 Urine Appearance Cloudy (CLEAR) 10/25/20 10:23 Urine pH 6.0 pH (5.0-7.0) 10/25/20 10:23 Ur Specific [place] 1.015 SP.GR. (1.005-1.030) 10/25/20 10:23 Urine Protein 30 mg/dL (NEGATIVE) H 10/25/20 10:23 Urine Glucose (UA) Negative mg/dL (NEGATIVE) 10/25/20 10:23 Urine Ketones Negative mg/dL (NEGATIVE) 10/25/20 10:23 Urine Blood 5 /ul (NEGATIVE) H 10/25/20 10:23 Urine Nitrate Negative (NEGATIVE) 10/25/20 10:23 Urine Bilirubin Negative mg/dl (NEGATIVE) 10/25/20 10:23 Urine Urobilinogen Normal EU/dl (NORMAL) 10/25/20 10:23 Ur Leukocyte Esterase 500 /ul (NEGATIVE) H 10/25/20 10:23 Urine RBC 0-5 /hpf (0-5) 10/25/20 10:23 Urine WBC >50 /hpf (0-5) H 10/25/20 10:23 Ur Epithelial Cells 0-5 /hpf (0-5) 10/25/20 10:23 Urine Bacteria 3+ (NONE) H 10/25/20 10:23 Urine Culture Comments Culture to follow 10/25/20 10:23 SARS-CoV-2 (PCR) Not detected (NotDetected) 10/25/20 11:12 Assessment/Plan - Narrative Narrative: Patient is actively dying, he is hypotensive despite 3 boluses of normal saline and labs reveals renal failure and liver injury making multiorgan failure very likely. Comfort measure orders have been placed, the patient is DNR status so no additional orders will be necessary. - Assessment/Plan (1) Comfort measures only status Problem: Acute (2) Multi-organ system dysfunction Problem: Acute
--- NOTE | 2020-10-26 10:23 | DS ---
Discharge Summary - Provider Primary Care Provider: Preeti Arzola Admitting Clinician: Maryanne Herr Attending Physician on Admission: Maryanne Herr - Date and Time Date of : 10/25/20 Time of : 16:39 - Diagnosis/Cause of (1) Comfort measures only status Problems: Acute (2) Multi-organ system dysfunction Problems: Acute - Summary Details (narrative): Patient arrived to [facility] ER after being brought in by EMS from the [facility] and critical condition, his prognosis was poor due to poor cardiac and respiratory function. A full work-up revealed multiorgan failure indicating that was imminent. His condition was discussed with his [place] and she agreed to place him on comfort measures to make him as comfortable as possible. The patient was placed on comfort measures since admission and shortly after with his at his bedside at 1430 9 PM on October 25 2020. Procedures Performed: none - Additional Data Confirmation of as documented by pronouncing clinician: no pulse, no respirations, no heart sounds Family: at bedside Practitioner(Attending/PCP) notified: Yes Attending physician: Maryanne Herr Was code activated: No Autopsy requested: No Wood Carving Machine Operator notified: No Organ Bank notified: No Advance Directives: Yes Hospice patient: No
== END 2020-10-25 18:00 | disposition expired ==
LOC: MS 09:44 → ER 09:44 → MS 13:05
PROVIDERS: ADMIT Family Medicine; ATTEND Family Medicine